=== PATIENT | male | born 1985 | race Caucasian/White ===

== ENCOUNTER 2024-02-13 18:32 | Inpatient (IN) | payer MEDICAID, SELFPAY ==
[2024-02-13] VITALS (31 sets, daily range): BP systolic 133–181; BP diastolic 83–106; PULSE 99–144; TEMP 36.2–36.6; O2SAT 100; BMI 28.1
[2024-02-13 19:10] LABS: Glucometer 429 mg/dL (74-106)
--- NOTE | 2024-02-13 19:16 | ECG_ITS ---
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
--- NOTE | 2024-02-13 19:21 | ED.GENADUL1 ---
HPI HPI - General Adult General Chief complaint: Abdominal Pain Stated complaint: Nausea/Vomiting, Back Pain Time Seen by Provider: 02/13/24 19:09 Mode of arrival: walk-in Limitations: no limitations History of Present Illness HPI narrative: 39-year-old male to the emergency department with chief complaint of abdominal pain, nausea, vomiting. Patient reports is been ongoing for 3 days. He reports that he has not been able to keep anything down. He has not taken his medications in 3 days. He reports that he is a type II diabetic. He does take insulin. He reports that this seems to happen cyclically, multiple times per year. Has been ongoing for 6 years. He reports that he has been hospitalized in [place], at [facility], and several other facilities. The abdominal pain is generalized. It is cramping in nature. There is no diarrhea. There is no blood in the vomit. He denies any fever, sweats, chills. He denies any cough, rhinorrhea, sore throat. Related Data Home Medications ?Medication ?Instructions ?Recorded ?Confirmed apixaban 5 mg (74 tabs) tablets in 5 mg PO Q12H 02/13/24 02/13/24 a dose pack ([employer] DVT-PE Treat 30D Start) dicyclomine 20 mg tablet 20 mg PO BID 02/13/24 02/13/24 insulin aspart U-100 100 unit/mL 1 sliding scale dose subcut TID 02/13/24 02/13/24 (3 mL) subcutaneous pen insulin glargine 100 unit/mL (3 55 unit subcut BID 02/13/24 02/13/24 mL) subcutaneous pen (Lantus Solostar U-100 Insulin) Allergies Allergy/AdvReac Type Severity Reaction Status Date / Time Penicillins Allergy Severe Swelling Verified 02/13/24 18:56 of Lip/Tongue/Throat Opioid HPI Opioid Management Most Recent Opioid Data: No Data to Display Review of Systems ROS Status of ROS 10 or more systems reviewed and unremarkable except as noted in history and below PFSH PFSH Social History Little interest or pleasure in doing things: not at all Feeling down, depressed, or hopeless: not at all Exam Narrative Exam Narrative: VITALS: I have reviewed the triage vital signs. GENERAL: Well developed, well appearing adult in no acute distress. NEURO: Alert and oriented. Moves all extremities. Face is symmetric and expressive. EYES: PERRL. No scleral icterus or conjunctival injection. No discharge. HENT: Normocephalic, atraumatic. Hearing is grossly intact. Nares grossly patent and without discharge. Mucous membranes dry. NECK: No JVD. Patient moves neck without restriction. CARDIO: Rhythm regular. Normal rate. No murmur, rub, or gallop. Pulses equal bilaterally in the upper and lower extremity. No lower extremity edema. PULM: Lungs clear to auscultation in all berry. No wheezes, rales, or rhonchi. No conversational dyspnea. No splinting, stridor, or accessory muscle use. GI/: Abdomen is soft and non-tender. Normoactive bowel sounds. EXTREMITIES: Symmetric muscle bulk. No joint swelling. No clubbing, cyanosis, or deformity. SKIN: Warm and dry. Normal turgor. No rash or lesions appreciated. PSYCH: Mood, affect, and interaction is appropriate to the setting. Constitutional Vital Signs, click to edit/add: Last Vital Signs Temp 97.9 F 02/13/24 18:56 Pulse 131 H 02/13/24 22:25 Resp 19 02/13/24 22:25 BP 142/94 H 02/13/24 22:25 Pulse Ox 100 02/13/24 21:20 O2 Del Method Room Air 02/13/24 18:56 Course Vital Signs Vital signs: Vital Signs Temperature 97.9 F 02/13/24 18:56 Pulse Rate 114 H 02/13/24 18:56 Respiratory Rate 20 02/13/24 18:56 Blood Pressure 164/105 H 02/13/24 18:56 Pulse Oximetry 100 02/13/24 18:56 Oxygen Delivery Method Room Air 02/13/24 18:56 Temperature 97.9 F 02/13/24 18:56 Pulse Rate 131 H 02/13/24 22:25 Respiratory Rate 19 02/13/24 22:25 Blood Pressure 142/94 H 02/13/24 22:25 Pulse Oximetry 100 02/13/24 21:20 Oxygen Delivery Method Room Air 02/13/24 18:56 Medical Decision Making MDM Narrative Medical decision making narrative: 39-year-old male to the emergency department with chief complaint of acute episode of recurrent nausea and vomiting. Concerned he is in DKA. He is tachycardic, otherwise stable vitals. The patient is afebrile. DKA workup is initiated. He does have some generalized abdominal pain with a benign abdominal exam. Will obtain acute abdominal series. I did review his diagnostic history on clinisync. He has an impressive amount of ED visits and hospitalizations over the last 2 years over multiple facilities for this. He has over 10 CT scans of his abdomen pelvis and what I could review. No indication for imaging of his abdomen further tonight. Lab work reviewed and noted. He does look dehydrated. He has a lactic acidosis. He does have an anion gap. Potassium is normal. Abdominal series negative He was started on insulin drip. Fluids at rate. Every 4 hours BMP. No indication for bicarbonate. Case was discussed with the hospitalist Feli via telephone. The patient is accepted to the ICU. Cesar Joya DO, KIMBEREM Medical Records Medical records reviewed: Yes I reviewed the patient's medical records Lab Data Lab results reviewed: Yes I reviewed the patient's lab results Labs: Lab Results 02/13/24 02/13/24 02/13/24 Range/Units 19:03 19:23 21:27 WBC 14.9 H (4.0-11.0) 10^3/uL RBC 6.37 H (4.70-6.10) 10^6/uL Hgb 16.6 (14.0-18.0) g/dL Hct 51.0 (42.0-54.0) % MCV 80.1 (80.0-94.0) fL MCH 26.1 (25.9-34.0) pg MCHC 32.5 (29.9-35.2) g/dL RDW 13.2 (11.0-15.0) % Plt Count 252 (150-450) 10^3/uL MPV 9.9 (9.5-13.5) fL Neut % (Auto) 91.9 H (43.0-75.0) % Lymph % (Auto) 6.2 L (20.5-60.0) % Payne % (Auto) 1.3 L (1.7-12.0) % Eos % (Auto) 0.0 L (0.9-7.0) % Baso % (Auto) 0.2 (0.2-2.0) % Neut # (Auto) 13.7 H (1.4-6.5) 10^3/uL Lymph # (Auto) 0.9 L (1.2-3.8) 10^3/uL Payne # (Auto) 0.2 L (0.3-0.8) 10^3/uL Eos # (Auto) 0.0 (0.0-0.7) 10^3/uL Baso # (Auto) 0.0 (0.0-0.1) 10^3/uL Abs Immat Gran (auto) 0.06 H (0.00-0.03) 10^3/uL Imm/Tot Granulo (auto) 0.4 (0.0-0.5) % VBG pH 7.168 L (7.330-7.430) VBG pCO2 37.3 L (40.0-52.0) mmHg Sodium 133 L (136-145) mmol/L Potassium 4.7 (3.5-5.1) mmol/L Chloride 91 L (98-107) mmol/L Carbon Dioxide 13.0 L (21.0-32.0) mmol/L Anion Gap 33.7 BUN 24.0 H (7.0-18.0) mg/dL Creatinine 1.46 H (0.70-1.30) mg/dL Est GFR ( Amer) >60 (>=60 mL/min/1.73m^2) Est GFR (Non-Af Amer) 53 L (>=60 mL/min/1.73m^2) BUN/Creatinine Ratio 16.4 Glucose 437 H (74-106) mg/dL Lactate 3.2 H* (0.4-2.0) mmol/L Calcium 10.0 (8.5-10.1) mg/dL Magnesium 2.2 (1.8-2.4) mg/dL Total Bilirubin 0.4 (0.2-1.0) mg/dL AST 9 L (15-37) U/L ALT 15 L (16-63) U/L Alkaline Phosphatase 150 H (46-116) U/L Troponin I High Sens <4.0 L (4.0-76.1) pg/mL Total Protein 8.6 H (6.4-8.2) g/dL Albumin 4.3 (3.4-5.0) g/dL Globulin 4.3 g/dL Albumin/Globulin Ratio 1.0 Lipase 37.0 (16.0-77.0) U/L Ethanol Quant <3 mg/dL POC Glucose 429 H 377 H (74-106) mg/dL 02/13/24 02/13/24 Range/Units 22:01 22:27 WBC (4.0-11.0) 10^3/uL RBC (4.70-6.10) 10^6/uL Hgb (14.0-18.0) g/dL Hct (42.0-54.0) % MCV (80.0-94.0) fL MCH (25.9-34.0) pg MCHC (29.9-35.2) g/dL RDW (11.0-15.0) % Plt Count (150-450) 10^3/uL MPV (9.5-13.5) fL Neut % (Auto) (43.0-75.0) % Lymph % (Auto) (20.5-60.0) % Payne % (Auto) (1.7-12.0) % Eos % (Auto) (0.9-7.0) % Baso % (Auto) (0.2-2.0) % Neut # (Auto) (1.4-6.5) 10^3/uL Lymph # (Auto) (1.2-3.8) 10^3/uL Payne # (Auto) (0.3-0.8) 10^3/uL Eos # (Auto) (0.0-0.7) 10^3/uL Baso # (Auto) (0.0-0.1) 10^3/uL Abs Immat Gran (auto) (0.00-0.03) 10^3/uL Imm/Tot Granulo (auto) (0.0-0.5) % VBG pH (7.330-7.430) VBG pCO2 (40.0-52.0) mmHg Sodium (136-145) mmol/L Potassium (3.5-5.1) mmol/L Chloride (98-107) mmol/L Carbon Dioxide (21.0-32.0) mmol/L Anion Gap BUN (7.0-18.0) mg/dL Creatinine (0.70-1.30) mg/dL Est GFR ( Amer) (>=60 mL/min/1.73m^2) Est GFR (Non-Af Amer) (>=60 mL/min/1.73m^2) BUN/Creatinine Ratio Glucose (74-106) mg/dL Lactate 2.6 H* (0.4-2.0) mmol/L Calcium (8.5-10.1) mg/dL Magnesium (1.8-2.4) mg/dL Total Bilirubin (0.2-1.0) mg/dL AST (15-37) U/L ALT (16-63) U/L Alkaline Phosphatase (46-116) U/L Troponin I High Sens (4.0-76.1) pg/mL Total Protein (6.4-8.2) g/dL Albumin (3.4-5.0) g/dL Globulin g/dL Albumin/Globulin Ratio Lipase (16.0-77.0) U/L Ethanol Quant mg/dL POC Glucose 301 H (74-106) mg/dL Imaging Data Abdominal x-ray: Attestation: I have reviewed the pertinent imaging results. Radiologist's impression: ITS Impressions Chest/Abdomen X-ray 02/13/24 19:27 IMPRESSION: Unremarkable plain film examination of the abdomen and chest. Electronically authenticated by: FLAKITO KARIMI Date: 02/13/2024 22:14 ECG Data Attestation: I personally reviewed and interpreted this ECG as follows: (Sinus tachycardia rate of 102. No STEMI. Normal QTc.) Critical Care Time Critical Care Time Critical Care Time: Yes Total Critical Care Time: 55 Attestation: Critical Care Procedure Note Authorized and Performed by: Cesar Joya DO Total critical care time: 55 min Due to a high probability of clinically significant, life threatening deterioration, the patient required my highest level of preparedness to intervene emergently and I personally spent this critical care time directly and personally managing the patient. This critical care time included obtaining a history; examining the patient; pulse oximetry; ordering and review of studies; arranging urgent treatment with development of a management plan; evaluation of patient's response to treatment; frequent reassessment; and, discussions with other providers. This critical care time was performed to assess and manage the high probability of imminent, life-threatening deterioration that could result in multi-organ failure. It was exclusive of separately billable procedures and treating other patients and teaching time. Please see MDM section and the rest of the note for further information on patient assessment and treatment. Discharge Plan Discharge Chief Complaint: Abdominal Pain Time of Disposition Decision: 22:45 Mode of Transportation: Private Vehicle Prescriptions / Home Meds: No Action dicyclomine 20 mg tablet 20 mg PO BID insulin aspart U-100 100 unit/mL (3 mL) insulin pen 1 sliding scale dose SUBCUT TID insulin glargine [Lantus Solostar U-100 Insulin] 100 unit/mL (3 mL) insulin pen 55 unit SUBCUT BID Eliquis DVT-PE Treat 30D Start 5 mg (74 tabs) tablets,dose pack 5 mg PO Q12H Print Language: Korean
--- NOTE | 2024-02-13 19:27 | XR_ITS ---
The [address] [address] Patient Name: ROSHAN HASSAN MRN: [id number] date: 1985 Sex: M Assigned Patient Location: ED.MAIN Current Patient Location: ER Accession/Order Number: [id number] Exam Date: 02/13/2024 20:00 Report Date: 02/13/2024 22:14 At the request of: JAEL MARIE Procedure: XR acute abdomen series EXAMINATION: XR acute abdomen series, 02/13/2024 8:00 PM EDT HISTORY:abdominal pain, vomiting COMPARISON:Chest x-ray dated 01/10/2024. TECHNIQUE:Frontal images of the chest and abdomen are submitted. FINDINGS: There is a nonobstructive bowel gas pattern with air and feces identified throughout the colon to the level the rectum.No obvious free air or pneumatosis are present. No suspicious urologic opacifications are appreciated. The cardiomediastinal silhouette is not enlarged. The pulmonary vascularity is within normal limits. The lungs are clear based on chest radiography. There is no costophrenic angle blunting. There is a moderate to large stool burden. XR/XR acute abdomen series IMPRESSION: Unremarkable plain film examination of the abdomen and chest. Electronically authenticated by: FLAKITO KARIMI Date: 02/13/2024 22:14
[2024-02-13 19:43] LABS: PCO2 VBG 37.3 mmHg (40.0-52.0); pH VBG 7.168 (7.330-7.430)
[2024-02-13] MEDS: PROMETHAZINE HCL 25 MG in 0.9 % SODIUM CHLORIDE 50 ML 204 MG IV (19:43)
[2024-02-13 19:44] LABS: Basophils Percent Auto 0.2 % (0.2-2.0); Hemoglobin 16.6 g/dL (14.0-18.0); Immature Granulocytes Abs Auto 0.06 10^3/uL (0.00-0.03); Immature Granulocytes Pct Auto 0.4 % (0.0-0.5); Lymphocytes Absolute Auto 0.9 10^3/uL (1.2-3.8); Lymphocytes Percent Auto 6.2 % (20.5-60.0); Mean Corpuscular HGB Conc 32.5 g/dL (29.9-35.2); Mean Corpuscular Hemoglobin 26.1 pg (25.9-34.0); Mean Corpuscular Volume 80.1 fL (80.0-94.0); Mean Platelet Volume 9.9 fL (9.5-13.5); Monocytes Absolute Auto 0.2 10^3/uL (0.3-0.8); Monocytes Percent Auto 1.3 % (1.7-12.0); Neutrophils Absolute Auto 13.7 10^3/uL (1.4-6.5); Neutrophils Percent Auto 91.9 % (43.0-75.0); Platelet Count 252 10^3/uL (150-450); Red Blood Count 6.37 10^6/uL (4.70-6.10); Red Cell Distribution Width 13.2 % (11.0-15.0); White Blood Count 14.9 10^3/uL (4.0-11.0)
[2024-02-13] MEDS: LACTATED RINGER'S SOLUTION 1,000 ML 999 ML IV (19:46)
[2024-02-13 20:08] LABS: Alanine Aminotransferase 15 U/L (16-63); Albumin Level 4.3 g/dL (3.4-5.0); Alkaline Phosphatase 150 U/L (46-116); Anion Gap 33.7; Aspartate Amino Transferase 9 U/L (15-37); BUN Creatinine Ratio 16.4; Bilirubin Total 0.4 mg/dL (0.2-1.0); Chloride 91 mmol/L (98-107); Estimated GFR (African America >60 (>=60 mL/min/1.73m^2); Estimated GFR (Non-African Ame 53 (>=60 mL/min/1.73m^2); Globulin 4.3 g/dL; Glucose 437 mg/dL (74-106); Magnesium 2.2 mg/dL (1.8-2.4); Potassium 4.7 mmol/L (3.5-5.1); Sodium 133 mmol/L (136-145); Total Protein 8.6 g/dL (6.4-8.2); Troponin I High Sensitivity <4.0 pg/mL (4.0-76.1)
[2024-02-13 20:17] LABS: Lactate/Lactic Acid 3.2 mmol/L (0.4-2.0)
[2024-02-13 20:23] LABS: Ethanol <3 mg/dL
[2024-02-13] MEDS: 0.9 % SODIUM CHLORIDE 1,000 ML 100 ML IV (20:42)
[2024-02-13] MEDS: INSULIN REGULAR IN 0.9 % NACL 100 UNIT/100 ML PLAST..BAG 8.618 UNIT IV (20:42)
[2024-02-13 21:28] LABS: Glucometer 377 mg/dL (74-106)
[2024-02-13] MEDS: ONDANSETRON PF 4 MG/2 ML VIAL IV (22:08)
[2024-02-13 22:29] LABS: Glucometer 301 mg/dL (74-106)
[2024-02-13 22:30] LABS: Lactate/Lactic Acid 2.6 mmol/L (0.4-2.0)
[2024-02-13 22:51] LABS: PCO2 VBG 20.8 mmHg (40.0-52.0); pH VBG 7.306 (7.330-7.430)
[2024-02-13 23:05] LABS: Glucometer 311 mg/dL (74-106)
[2024-02-13 23:31] LABS: Anion Gap 33.4; BUN Creatinine Ratio 18.1; Calcium 9.6 mg/dL (8.5-10.1); Carbon Dioxide 9.6 mmol/L (21.0-32.0); Chloride 97 mmol/L (98-107); Estimated GFR (African America >60 (>=60 mL/min/1.73m^2); Estimated GFR (Non-African Ame 57 (>=60 mL/min/1.73m^2); Glucose 349 mg/dL (74-106); Sodium 136 mmol/L (136-145)
[2024-02-13 23:45] LABS: Estimated Average Glucose 306 mg/dL; Glycohemoglobin A1C 12.3 % (4.5-6.2)
[2024-02-14] VITALS (16 sets, daily range): BP systolic 116–153; BP diastolic 68–90; PULSE 83–126; TEMP 36.1–36.8; O2SAT 96–98
[2024-02-14 00:03] LABS: Glucometer 230 mg/dL (74-106)
[2024-02-14] MEDS: DEXTROSE 5 %-0.45 % SOD CHLORD 1,000 ML 250 ML IV ×3 (00:10→08:09)
[2024-02-14 02:28] LABS: Anion Gap 26.6; BUN Creatinine Ratio 18.2; Calcium 9.4 mg/dL (8.5-10.1); Carbon Dioxide 15.9 mmol/L (21.0-32.0); Chloride 98 mmol/L (98-107); Estimated GFR (African America >60 (>=60 mL/min/1.73m^2); Estimated GFR (Non-African Ame 60 (>=60 mL/min/1.73m^2); Glucose 302 mg/dL (74-106); Potassium 4.5 mmol/L (3.5-5.1); Sodium 136 mmol/L (136-145)
[2024-02-14 05:33] LABS: Basophils Percent Auto 0.2 % (0.2-2.0); Eosinophils Percent Auto 0.1 % (0.9-7.0); Hematocrit 44.2 % (42.0-54.0); Immature Granulocytes Abs Auto 0.09 10^3/uL (0.00-0.03); Immature Granulocytes Pct Auto 0.6 % (0.0-0.5); Lymphocytes Absolute Auto 1.7 10^3/uL (1.2-3.8); Lymphocytes Percent Auto 10.9 % (20.5-60.0); Mean Corpuscular HGB Conc 33.9 g/dL (29.9-35.2); Mean Corpuscular Hemoglobin 26.5 pg (25.9-34.0); Mean Platelet Volume 9.6 fL (9.5-13.5); Monocytes Absolute Auto 0.7 10^3/uL (0.3-0.8); Monocytes Percent Auto 4.4 % (1.7-12.0); Neutrophils Absolute Auto 13.2 10^3/uL (1.4-6.5); Neutrophils Percent Auto 83.8 % (43.0-75.0); Platelet Count 247 10^3/uL (150-450); Red Blood Count 5.67 10^6/uL (4.70-6.10); Red Cell Distribution Width 13.3 % (11.0-15.0); White Blood Count 15.7 10^3/uL (4.0-11.0)
[2024-02-14 05:42] LABS: pH VBG 7.383 (7.330-7.430)
[2024-02-14 05:43] LABS: PCO2 VBG 34.8 mmHg (40.0-52.0)
[2024-02-14 05:51] LABS: Phosphorus 2.6 mg/dL (2.6-4.7)
--- NOTE | 2024-02-14 05:57 | P.HP_ITS ---
HPI H&P: HPI History of Present Illness Chief complaint: Nausea/Vomiting, Back Pain Narrative: With a history of insulin-dependent diabetes, presented to the emergency room with increasing abdominal pain, nausea, vomiting. In the emergency room patient found to have significant acidosis consistent with diabetic ketoacidosis. Patient was transferred up to the intensive care unit and placed on insulin drip. When I saw patient in the intensive care unit, he was resting comfortably in bed, does have some abdominal pain. Opioid HPI Opioid Management Most Recent Pain and Opioid Data: Last Pain Scale 3 02/14/24 08:00 02/14/24 Last Pain Assessment 02/14/24 09:00 Last ORT Total Score 1 02/13/24 23:26 02/13/24 Last ORT Risk Category Low Risk 02/13/24 23:26 02/13/24 Review of Systems ROS Status of ROS 10 or more systems reviewed and unremark able except as noted in history and below [facility] Medical History (Updated 02/14/24 @ 05:54 by Magdalena Hernandez) DVT of lower extremity (deep venous thrombosis) ?I82.409 - Acute embolism and thrombosis of unspecified deep veins of unspecified lower extremity (ICD-10) Diabetes ?E11.9 - Type 2 diabetes mellitus without complications (ICD-10) Social History (Updated 02/13/24 @ 23:15 by Pearl Saenz) Smoking status: Current some day smoker Nicotine containing products detail: half pack daily Non-prescribed substance use: denies use Highest level of school completed/degree received: don't know Little interest or pleasure in doing things: not at all Feeling down, depressed, or hopeless: not at all Meds Home Medications and Allergies Home Medications ?Medication ?Instructions ?Recorded ?Confirmed ?Type apixaban 5 mg (74 tabs) tablets in 5 mg PO Q12H 02/13/24 02/13/24 History a dose pack (Eliquis DVT-PE Treat 30D Start) dicyclomine 20 mg tablet 20 mg PO BID 02/13/24 02/13/24 History insulin aspart U-100 100 unit/mL 1 sliding scale dose subcut TID 02/13/24 02/13/24 History (3 mL) subcutaneous pen insulin glargine 100 unit/mL (3 55 unit subcut BID 02/13/24 02/13/24 History mL) subcutaneous pen (Lantus Solostar U-100 Insulin) blood-glucose sensor (Dexcom G7 02/14/24 02/14/24 History Sensor device) Allergies Allergy/AdvReac Type Severity Reaction Status Date / Time Penicillins Allergy Severe Swelling Verified 02/13/24 18:56 of Lip/Tongue/Throat Exam Constitutional Vital Signs, click to edit/add: Last Vital Signs Temp 97 F L 02/14/24 04:14 Pulse 124 H 02/14/24 04:14 Resp 16 02/14/24 04:14 BP 153/90 H 02/14/24 04:14 Pulse Ox 97 02/14/24 04:14 O2 Del Method Room Air 02/14/24 04:14 Documenting provider has reviewed patient's vital signs: yes Common normals: apparent distress (Mild abdominal discomfort) Chest Common normals: inspection of chest normal Respiratory Common normals: normal respiratory effort Cardio Common normals: regular rate and regular rhythm GI Common normals: Normal to inspection, nondistended, normoactive bowel sounds present and soft to palpation; tender Palpation: tender (Diffusely tender, no rebound tenderness) Extremity Common normals: normal to inspection Results Labs Labs: Short CBC 02/13/24 02/14/24 Range/Units 19:23 05:12 WBC 14.9 H 15.7 H (4.0-11.0) 10^3/uL Hgb 16.6 15.0 (14.0-18.0) g/dL Hct 51.0 44.2 (42.0-54.0) % Plt Count 252 247 (150-450) 10^3/uL BMP 02/13/24 02/13/24 02/14/24 19:23 22:44 01:55 Sodium 133 L 136 136 Potassium 4.7 4.0 4.5 Chloride 91 L 97 L 98 Carbon Dioxide 13.0 L 9.6 L 15.9 L BUN 24.0 H 25.0 H 24.0 H Creatinine 1.46 H 1.38 H 1.32 H Glucose 437 H 349 H 302 H Calcium 10.0 9.6 9.4 Liver Function 02/13/24 Range/Units 19:23 Total Bilirubin 0.4 (0.2-1.0) mg/dL AST 9 L (15-37) U/L ALT 15 L (16-63) U/L Alkaline Phosphatase 150 H (46-116) U/L Albumin 4.3 (3.4-5.0) g/dL ABG ABG results: 02/13/24 02/13/24 02/14/24 19:23 22:44 05:12 VBG pH 7.168 L 7.306 L 7.383 VBG pCO2 37.3 L 20.8 L 34.8 L Assessment and Plan Assessment and Plan (1) Acute dehydration: (2) DKA (diabetic ketoacidosis): (3) Diabetes: Plan Admission findings: Sinus tachycardia, respiratory distress, uncontrolled high blood pressure, hyperglycemia, hyponatremia, leukocytosis, metabolic acidosis, acute kidney injury secondary to acute diabetic ketoacidosis. DKA: Maintain insulin drip and IV fluids. Advance diet this morning. Restart home insulin as his pH is improving. Reevaluate later today. Abdominal pain-history of cyclic vomiting syndrome. Patient denies that is what it is. Will increase his Bentyl and reevaluate later today Thrombocytopenia-monitor daily Acute kidney injury with creatinine 120% above baseline-IV fluid resuscitation Leukocytosis-no acute infectious symptoms likely demargination Admission status: With the severity of his acidosis and need for IV insulin patient was placed in the inpatient status. Medically necessary treatment will span 2 midnights. Maintain inpatient status
[2024-02-14] MEDS: DICYCLOMINE HCL 20 MG/2 ML VIAL IM (06:09)
[2024-02-14] MEDS: PANTOPRAZOLE SODIUM 40 MG VIAL IV (06:32)
[2024-02-14] MEDS: HYOSCYAMINE SULFATE 0.125 MG TAB.SUBL SL (06:32)
[2024-02-14 07:09] LABS: Anion Gap 22.3; BUN Creatinine Ratio 17.6; Calcium 9.1 mg/dL (8.5-10.1); Chloride 98 mmol/L (98-107); Estimated GFR (African America >60 (>=60 mL/min/1.73m^2); Estimated GFR (Non-African Ame >60 (>=60 mL/min/1.73m^2); Glucose 303 mg/dL (74-106); Potassium 4.3 mmol/L (3.5-5.1); Sodium 134 mmol/L (136-145)
[2024-02-14] MEDS: APIXABAN 5 MG TABLET PO ×2 (08:10→20:07)
[2024-02-14] MEDS: DICYCLOMINE HCL 10 MG CAPSULE 20 MG PO ×2 (08:10→20:07)
--- NOTE | 2024-02-14 09:33 | CM.NOTE ---
Rounds made with Dr. Celis, discussed with pt diagnosis and plan of care. No discharge today.
[2024-02-14] MEDS: KETOROLAC TROMETHAMINE 30 MG/ML VIAL IVP ×2 (09:58→20:06)
[2024-02-14 10:22] LABS: Anion Gap 17.1; BUN Creatinine Ratio 14.9; Calcium 8.8 mg/dL (8.5-10.1); Carbon Dioxide 20.7 mmol/L (21.0-32.0); Chloride 101 mmol/L (98-107); Estimated GFR (African America >60 (>=60 mL/min/1.73m^2); Estimated GFR (Non-African Ame >60 (>=60 mL/min/1.73m^2); Glucose 216 mg/dL (74-106); Potassium 3.8 mmol/L (3.5-5.1); Sodium 135 mmol/L (136-145)
[2024-02-14] MEDS: INSULIN REGULAR IN 0.9 % NACL 100 UNIT/100 ML PLAST..BAG 7.3 UNIT IV (10:44)
[2024-02-14] MEDS: ONDANSETRON PF 4 MG/2 ML VIAL IV (12:33)
[2024-02-14] MEDS: HALOPERIDOL LACTATE 5 MG/ML VIAL 2.5 MG IV (12:58)
[2024-02-14] MEDS: METOCLOPRAMIDE HCL 10 MG/2 ML VIAL IVP ×2 (12:58→20:07)
[2024-02-14 14:07] LABS: Bilirubin Urine NEGATIVE (NEGATIVE); Blood Urine NEGATIVE (NEGATIVE); Clarity Urine CLEAR (CLEAR); Color Urine LT. YELLOW (YELLOW); Glucose Urine UA >=1000 mg/dL (NEGATIVE); Ketones Urine 40 mg/dL (NEGATIVE); Leukocyte Esterase Urine NEGATIVE (NEGATIVE); Nitrite Urine NEGATIVE (NEGATIVE); Protein Urine TRACE mg/dL (NEG/TRACE); Urobilinogen Urine 0.2 EU/dL (0.2-1.0)
[2024-02-14 14:16] LABS: Urine Microscopic Indicated NO
[2024-02-14 14:21] LABS: Amphetamine Screen Urine NEGATIVE (NEGATIVE); Barbiturates Screen Urine NEGATIVE (NEGATIVE); Benzodiazepines Screen Urine NEGATIVE (NEGATIVE); Buprenorphine Screen Urine NEGATIVE (NEGATIVE); Cannabinoid Screen Urine POSITIVE (NEGATIVE); Cocaine Screen Urine NEGATIVE (NEGATIVE); Methadone Screen Urine NEGATIVE (NEGATIVE); Methamphetamines Screen Urine NEGATIVE (NEGATIVE); Opiate Screen Urine NEGATIVE (NEGATIVE); Oxycodone Screen Urine NEGATIVE (NEGATIVE); Phencyclidine Screen Urine NEGATIVE (NEGATIVE); Tricyclic Antidepressant Urine NEGATIVE (NEGATIVE)
[2024-02-14 14:30] LABS: BUN Creatinine Ratio 16.9; Calcium 9.3 mg/dL (8.5-10.1); Carbon Dioxide 21.9 mmol/L (21.0-32.0); Chloride 99 mmol/L (98-107); Estimated GFR (African America >60 (>=60 mL/min/1.73m^2); Estimated GFR (Non-African Ame >60 (>=60 mL/min/1.73m^2); Glucose 308 mg/dL (74-106); Potassium 3.9 mmol/L (3.5-5.1); Sodium 135 mmol/L (136-145)
[2024-02-14] MEDS: 0.9 % SODIUM CHLORIDE 1,000 ML 125 ML IV ×2 (15:35→23:40)
[2024-02-14 16:07] LABS: Magnesium 2.2 mg/dL (1.8-2.4); Phosphorus 2.8 mg/dL (2.6-4.7)
[2024-02-14 18:05] LABS: Basophils Percent Auto 0.1 % (0.2-2.0); Eosinophils Percent Auto 0.1 % (0.9-7.0); Hemoglobin 14.1 g/dL (14.0-18.0); Immature Granulocytes Pct Auto 0.6 % (0.0-0.5); Lymphocytes Absolute Auto 1.8 10^3/uL (1.2-3.8); Lymphocytes Percent Auto 9.8 % (20.5-60.0); Mean Corpuscular HGB Conc 33.6 g/dL (29.9-35.2); Mean Corpuscular Hemoglobin 26.6 pg (25.9-34.0); Mean Corpuscular Volume 79.1 fL (80.0-94.0); Mean Platelet Volume 9.1 fL (9.5-13.5); Monocytes Absolute Auto 1.2 10^3/uL (0.3-0.8); Monocytes Percent Auto 6.9 % (1.7-12.0); Neutrophils Absolute Auto 14.9 10^3/uL (1.4-6.5); Neutrophils Percent Auto 82.5 % (43.0-75.0); Platelet Count 198 10^3/uL (150-450); Red Blood Count 5.31 10^6/uL (4.70-6.10); Red Cell Distribution Width 13.5 % (11.0-15.0)
[2024-02-14 18:21] LABS: Anion Gap 15.5; BUN Creatinine Ratio 18.6; Calcium 9.1 mg/dL (8.5-10.1); Carbon Dioxide 20.7 mmol/L (21.0-32.0); Chloride 102 mmol/L (98-107); Estimated GFR (African America >60 (>=60 mL/min/1.73m^2); Estimated GFR (Non-African Ame >60 (>=60 mL/min/1.73m^2); Glucose 196 mg/dL (74-106); Magnesium 2.3 mg/dL (1.8-2.4); Phosphorus 3.1 mg/dL (2.6-4.7); Potassium 4.2 mmol/L (3.5-5.1); Sodium 134 mmol/L (136-145)
--- NOTE | 2024-02-14 19:25 | DIETREC ---
Due to N/V, recommend Clear Liquid diet; advance to Full Liquid as tolerated. Provided basic diet guidelines. Will offer diabetic diet education as pt will accept and continue to follow PRN.
[2024-02-14 22:50] LABS: Anion Gap 12.3; BUN Creatinine Ratio 19.4; Calcium 8.8 mg/dL (8.5-10.1); Carbon Dioxide 24.2 mmol/L (21.0-32.0); Chloride 107 mmol/L (98-107); Estimated GFR (African America >60 (>=60 mL/min/1.73m^2); Estimated GFR (Non-African Ame >60 (>=60 mL/min/1.73m^2); Glucose 133 mg/dL (74-106); Magnesium 2.1 mg/dL (1.8-2.4); Phosphorus 2.9 mg/dL (2.6-4.7); Potassium 3.5 mmol/L (3.5-5.1); Sodium 140 mmol/L (136-145)
[2024-02-15] VITALS (16 sets, daily range): BP systolic 105–157; BP diastolic 61–93; PULSE 68–95; TEMP 36.1–37.1; O2SAT 96–99
[2024-02-15] MEDS: METOCLOPRAMIDE HCL 10 MG/2 ML VIAL IVP ×4 (01:54→22:20)
[2024-02-15] MEDS: KETOROLAC TROMETHAMINE 30 MG/ML VIAL IVP ×4 (03:05→22:22)
[2024-02-15] MEDS: HALOPERIDOL LACTATE 5 MG/ML VIAL 1 MG IV ×2 (03:05→08:38)
[2024-02-15 05:38] LABS: Basophils Percent Auto 0.3 % (0.2-2.0); Eosinophils Absolute Auto 0.1 10^3/uL (0.0-0.7); Eosinophils Percent Auto 0.4 % (0.9-7.0); Hematocrit 39.1 % (42.0-54.0); Immature Granulocytes Abs Auto 0.04 10^3/uL (0.00-0.03); Immature Granulocytes Pct Auto 0.3 % (0.0-0.5); Lymphocytes Absolute Auto 2.2 10^3/uL (1.2-3.8); Lymphocytes Percent Auto 19.2 % (20.5-60.0); Mean Corpuscular HGB Conc 33.2 g/dL (29.9-35.2); Mean Corpuscular Hemoglobin 26.4 pg (25.9-34.0); Mean Corpuscular Volume 79.3 fL (80.0-94.0); Mean Platelet Volume 9.4 fL (9.5-13.5); Monocytes Absolute Auto 0.8 10^3/uL (0.3-0.8); Monocytes Percent Auto 7.1 % (1.7-12.0); Neutrophils Absolute Auto 8.3 10^3/uL (1.4-6.5); Neutrophils Percent Auto 72.7 % (43.0-75.0); Platelet Count 202 10^3/uL (150-450); Red Blood Count 4.93 10^6/uL (4.70-6.10); Red Cell Distribution Width 13.6 % (11.0-15.0); White Blood Count 11.4 10^3/uL (4.0-11.0)
[2024-02-15 05:38] LABS: Anion Gap 12.6; BUN Creatinine Ratio 18.5; Calcium 8.7 mg/dL (8.5-10.1); Carbon Dioxide 23.3 mmol/L (21.0-32.0); Chloride 108 mmol/L (98-107); Estimated GFR (African America >60 (>=60 mL/min/1.73m^2); Estimated GFR (Non-African Ame >60 (>=60 mL/min/1.73m^2); Glucose 154 mg/dL (74-106); Magnesium 2.1 mg/dL (1.8-2.4); Phosphorus 2.6 mg/dL (2.6-4.7); Potassium 3.9 mmol/L (3.5-5.1); Sodium 140 mmol/L (136-145)
[2024-02-15 05:54] LABS: Alanine Aminotransferase 12 U/L (16-63); Albumin Level 2.7 g/dL (3.4-5.0); Alkaline Phosphatase 91 U/L (46-116); Anion Gap 12.5; Aspartate Amino Transferase 14 U/L (15-37); BUN Creatinine Ratio 20.2; Bilirubin Total 0.4 mg/dL (0.2-1.0); Calcium 8.5 mg/dL (8.5-10.1); Carbon Dioxide 24.2 mmol/L (21.0-32.0); Chloride 108 mmol/L (98-107); Estimated GFR (African America >60 (>=60 mL/min/1.73m^2); Estimated GFR (Non-African Ame >60 (>=60 mL/min/1.73m^2); Globulin 2.8 g/dL; Glucose 126 mg/dL (74-106); Potassium 3.7 mmol/L (3.5-5.1); Sodium 141 mmol/L (136-145); Total Protein 5.5 g/dL (6.4-8.2)
[2024-02-15] MEDS: PANTOPRAZOLE SODIUM 40 MG VIAL IV (06:04)
[2024-02-15] MEDS: DICYCLOMINE HCL 10 MG CAPSULE 20 MG PO ×3 (06:04→22:32)
[2024-02-15] MEDS: 0.9 % SODIUM CHLORIDE 1,000 ML 125 ML IV (07:03)
[2024-02-15 07:23] LABS: Anion Gap 14.9; BUN Creatinine Ratio 20.2; Calcium 8.5 mg/dL (8.5-10.1); Carbon Dioxide 22.6 mmol/L (21.0-32.0); Chloride 108 mmol/L (98-107); Estimated GFR (African America >60 (>=60 mL/min/1.73m^2); Estimated GFR (Non-African Ame >60 (>=60 mL/min/1.73m^2); Glucose 101 mg/dL (74-106); Magnesium 2.1 mg/dL (1.8-2.4); Phosphorus 2.6 mg/dL (2.6-4.7); Potassium 3.5 mmol/L (3.5-5.1); Sodium 142 mmol/L (136-145)
[2024-02-15] MEDS: APIXABAN 5 MG TABLET PO ×2 (08:38→22:24)
[2024-02-15] MEDS: OMEPRAZOLE 40 MG CAPSULE.DR PO (09:11)
[2024-02-15] MEDS: INSULIN DETEMIR 300 UNIT/3 ML INSULN.PEN 45 UNIT SUBQ (09:11)
[2024-02-15] MEDS: SODIUM CHLORIDE 0.45 % 1,000 ML 125 ML IV ×2 (09:12→17:01)
--- NOTE | 2024-02-15 10:37 | P.IMPN_ITS ---
Progress Note: A&P Assessment and Plan (1) Acute dehydration: (2) DKA (diabetic ketoacidosis): Qualifiers: Diabetes mellitus type: type 1 Diabetes mellitus complication detail: without coma Qualified Code(s): E10.10 - Type 1 diabetes mellitus with ketoacidosis without coma (3) Cyclic vomiting syndrome: (4) Diabetes: Qualifiers: Diabetes mellitus type: type 1 Diabetes mellitus complication status: without complication Qualified Code(s): E10.9 - Type 1 diabetes mellitus without complications (5) H/O deep venous thrombosis: (6) Leukocytosis: Qualifiers: Leukocytosis type: leukemoid reaction Qualified Code(s): D72.823 - Leukemoid reaction Plan Gap closed. Insulin drip discontinued. Transitioned to SQ insulin. Takes 55 units of Levemir q12 but due to persistent nausea/low PO intake, will start with 45 units along with SSI Q6H. Hyperchloremia/hypernatremia noted likely due to aggressive isotonic fluid resuscitation. Changed IVF to 0.45 NS as patient is still clinically dry and has poor PO intake. Leukocytosis is improving. No evidence of an infection. Patient counseled on importance of compliance. Admits to not using Insulin as prescribed. Advance diet as tolerated. Requires continued inpatient treatment/monitoring as continues to have nausea/poor PO intake and has not been tolerating PO diet. C/w IV Reglan TID, along with zofran as needed. Reviewed labs, discussed results with the patient. Care plan d/w patient's RN. [facility] Internal Medicine - PN: Subj Subjective Interval history: Seen and examined. Insulin drip discontinued this morning. Patient could not tolerate Liquid diet and vomited. He is feeling better after throwing up. Denies abdominal pain. Exam Constitutional Vital Signs, click to edit/add: Last Vital Signs Temp 97.4 F L 02/15/24 04:00 Pulse 95 H 02/15/24 10:00 Resp 18 02/15/24 08:00 BP 126/83 02/15/24 08:00 Pulse Ox 96 02/15/24 08:00 O2 Del Method Room Air 02/15/24 08:00 Documenting provider has reviewed patient's vital signs: yes Common normals: no apparent distress and oriented x3 General appearance: cooperative Respiratory Common normals: normal respiratory effort and clear to auscultation bilaterally Effort & inspection: able to speak in complete sentences Auscultation: clear to auscultation bilaterally Cardio Common normals: regular rate, S1 normal heart sound and S2 normal heart sound Rate: regular rate Heart sounds: S1 normal and S2 normal GI Common normals: Normal to inspection, nondistended, normoactive bowel sounds present, soft to palpation, non-tender and no hepatosplenomegaly Palpation: soft and no hepatosplenomegaly Extremity Common normals: no clubbing, cyanosis or edema Neuro Common normals: oriented x3, moves all extremities and no focal motor deficits Psych Common normals: mental status grossly normal, denies hallucinations, denies homicidal ideation and denies suicidal ideation Internal Medicine - PN: Obj Da Labs Labs: Laboratory Results - last 24 hr 02/14/24 02/14/24 02/14/24 13:50 14:16 18:00 WBC 18.0 H RBC 5.31 Hgb 14.1 Hct 42.0 MCV 79.1 L MCH 26.6 MCHC 33.6 RDW 13.5 Plt Count 198 MPV 9.1 L Neut % (Auto) 82.5 H Lymph % (Auto) 9.8 L [place] % (Auto) 6.9 Eos % (Auto) 0.1 L Baso % (Auto) 0.1 L Neut # (Auto) 14.9 H Lymph # (Auto) 1.8 [place] # (Auto) 1.2 H Eos # (Auto) 0.0 Baso # (Auto) 0.0 Abs Immat Gran (auto) 0.10 H Imm/Tot Granulo (auto) 0.6 H Sodium 135 L 134 L Potassium 3.9 4.2 Chloride 99 102 Carbon Dioxide 21.9 20.7 L Anion Gap 18.0 15.5 BUN 22.0 H 21.0 H Creatinine 1.30 1.13 Est GFR ( Amer) >60 >60 Est GFR (Non-Af Amer) >60 >60 BUN/Creatinine Ratio 16.9 18.6 Glucose 308 H 196 H Calcium 9.3 9.1 Phosphorus 2.8 3.1 Magnesium 2.2 2.3 Total Bilirubin AST ALT Alkaline Phosphatase Total Protein Albumin Globulin Albumin/Globulin Ratio Urine Color Lt. yellow Urine Clarity Clear Urine pH 6.0 Ur Specific [place] 1.020 Urine Protein Trace Urine Glucose (UA) >=1000 A Urine Ketones 40 A Urine Occult Blood Negative Urine Nitrite Negative Urine Bilirubin Negative Urine Urobilinogen 0.2 Ur Leukocyte Esterase Negative Urine Opiates Screen Negative Ur Buprenorphine Scrn Negative Ur Oxycodone Screen Negative Urine Methadone Screen Negative Ur Barbiturates Screen Negative U Tricyclic Antidepress Negative Ur Phencyclidine Scrn Negative Ur Amphetamines Screen Negative U Methamphetamines Scrn Negative U Benzodiazepines Scrn Negative Urine Cocaine Screen Negative U Cannabinoids Screen Positive A 02/14/24 02/15/24 02/15/24 22:10 03:10 05:24 WBC 11.4 H RBC 4.93 Hgb 13.0 L Hct 39.1 L MCV 79.3 L MCH 26.4 MCHC 33.2 RDW 13.6 Plt Count 202 MPV 9.4 L Neut % (Auto) 72.7 Lymph % (Auto) 19.2 L [place] % (Auto) 7.1 Eos % (Auto) 0.4 L Baso % (Auto) 0.3 Neut # (Auto) 8.3 H Lymph # (Auto) 2.2 [place] # (Auto) 0.8 Eos # (Auto) 0.1 Baso # (Auto) 0.0 Abs Immat Gran (auto) 0.04 H Imm/Tot Granulo (auto) 0.3 Sodium 140 140 141 Potassium 3.5 3.9 3.7 Chloride 107 108 H 108 H Carbon Dioxide 24.2 23.3 24.2 Anion Gap 12.3 12.6 12.5 BUN 21.0 H 20.0 H 20.0 H Creatinine 1.08 1.08 0.99 Est GFR ( Amer) >60 >60 >60 Est GFR (Non-Af Amer) >60 >60 >60 BUN/Creatinine Ratio 19.4 18.5 20.2 Glucose 133 H 154 H 126 H Calcium 8.8 8.7 8.5 Phosphorus 2.9 2.6 Magnesium 2.1 2.1 Total Bilirubin 0.4 AST 14 L ALT 12 L Alkaline Phosphatase 91 Total Protein 5.5 L Albumin 2.7 L Globulin 2.8 Albumin/Globulin Ratio 1.0 Urine Color Urine Clarity Urine pH Ur Specific [place] Urine Protein Urine Glucose (UA) Urine Ketones Urine Occult Blood Urine Nitrite Urine Bilirubin Urine Urobilinogen Ur Leukocyte Esterase Urine Opiates Screen Ur Buprenorphine Scrn Ur Oxycodone Screen Urine Methadone Screen Ur Barbiturates Screen U Tricyclic Antidepress Ur Phencyclidine Scrn Ur Amphetamines Screen U Methamphetamines Scrn U Benzodiazepines Scrn Urine Cocaine Screen U Cannabinoids Screen 02/15/24 07:05 WBC RBC Hgb Hct MCV MCH MCHC RDW Plt Count MPV Neut % (Auto) Lymph % (Auto) [place] % (Auto) Eos % (Auto) Baso % (Auto) Neut # (Auto) Lymph # (Auto) [place] # (Auto) Eos # (Auto) Baso # (Auto) Abs Immat Gran (auto) Imm/Tot Granulo (auto) Sodium 142 Potassium 3.5 Chloride 108 H Carbon Dioxide 22.6 Anion Gap 14.9 BUN 20.0 H Creatinine 0.99 Est GFR ( Amer) >60 Est GFR (Non-Af Amer) >60 BUN/Creatinine Ratio 20.2 Glucose 101 Calcium 8.5 Phosphorus 2.6 Magnesium 2.1 Total Bilirubin AST ALT Alkaline Phosphatase Total Protein Albumin Globulin Albumin/Globulin Ratio Urine Color Urine Clarity Urine pH Ur Specific [place] Urine Protein Urine Glucose (UA) Urine Ketones Urine Occult Blood Urine Nitrite Urine Bilirubin Urine Urobilinogen Ur Leukocyte Esterase Urine Opiates Screen Ur Buprenorphine Scrn Ur Oxycodone Screen Urine Methadone Screen Ur Barbiturates Screen U Tricyclic Antidepress Ur Phencyclidine Scrn Ur Amphetamines Screen U Methamphetamines Scrn U Benzodiazepines Scrn Urine Cocaine Screen U Cannabinoids Screen
[2024-02-15] MEDS: ONDANSETRON PF 4 MG/2 ML VIAL IV (11:09)
[2024-02-15] MEDS: INSULIN ASPART 300 UNIT/3 ML PEN SUBQ (11:09)
--- NOTE | 2024-02-15 14:00 | CT_ITS ---
The [address] [address] Patient Name: ROSHAN HASSAN MRN: [id number] date: 1985 Sex: M Assigned Patient Location: [place] Current Patient Location: Accession/Order Number: [id number] Exam Date: 02/15/2024 14:35 Report Date: 02/15/2024 16:06 At the request of: SHAIKH RICCI Procedure: CT abdomen pelvis wo con CT ABDOMEN AND PELVIS WITHOUT CONTRAST: 02/15/2024 2:35 PM EDT Clinical Data: Persistent nausea/vomiting Comparison: 124 Unenhanced helically acquired data per protocol. The lack of IV contrast material hampers evaluation of the viscera, for adenopathy, and of the vasculature. The lack of oral contrast medium to some extent hampers evaluation of the bowel. All CT scans at this facility use dose modulation, iterative reconstruction, and/or weight based dosing when appropriate to reduce radiation dose to as low as reasonably achievable. FINDINGS: LOWER THORAX: No acute finding LIVER: No acute findings. SPLEEN: No acute findings. GB/BILIARY: No acute findings at CT. PANCREAS: No acute findings. ADRENALS: Fairly mild nonspecific thickening both adrenals is again present KIDNEYS/URETERS: Kidneys are symmetric in size and density on this unenhanced study. No perinephric fluid collection or stranding. No hydronephrosis or hydroureter. No calculi VESSELS: No AAA ABDOMINAL NODES: No obvious adenopathy. PELVIC NODES: No obvious adenopathy. BLADDER: Nearly empty. No calculi REPRODUCTIVE: No acute findings PERITONEUM: No free air. No free fluid. EXTRAPERITONEUM: No acute findings. BOWEL: No GI obstruction. Mild to modest amount stool within aspects of the colon. A modest amount of fluid and some air in the stomach. Small amount of air, fluid, and debris in nondistended small now. On this study performed without oral contrast medium, no focally thickened loop of bowel is apparent BODY WALL: No acute finding BONES: No acute findings. Again, some arthritic changes at the SI joints OTHER: None CT/CT abdomen pelvis wo con IMPRESSION: 1. No evidence of acute process on this unenhanced exam as described.. Electronically authenticated by: ANNETTE MORATAYA Date: 02/15/2024 16:06
[2024-02-15] MEDS: 0.9 % SODIUM CHLORIDE 1,000 ML 1000 ML IV (15:30)
[2024-02-15] MEDS: PROMETHAZINE HCL 25 MG in 0.9 % SODIUM CHLORIDE 50 ML 204 MG IV ×2 (15:38→22:18)
[2024-02-15 15:43] LABS: Basophils Percent Auto 0.3 % (0.2-2.0); Eosinophils Percent Auto 0.1 % (0.9-7.0); Hematocrit 43.1 % (42.0-54.0); Hemoglobin 14.1 g/dL (14.0-18.0); Immature Granulocytes Abs Auto 0.05 10^3/uL (0.00-0.03); Immature Granulocytes Pct Auto 0.4 % (0.0-0.5); Lymphocytes Percent Auto 8.8 % (20.5-60.0); Mean Corpuscular HGB Conc 32.7 g/dL (29.9-35.2); Mean Corpuscular Hemoglobin 26.2 pg (25.9-34.0); Monocytes Absolute Auto 0.5 10^3/uL (0.3-0.8); Monocytes Percent Auto 3.8 % (1.7-12.0); Neutrophils Absolute Auto 10.3 10^3/uL (1.4-6.5); Neutrophils Percent Auto 86.6 % (43.0-75.0); Platelet Count 203 10^3/uL (150-450); Red Blood Count 5.39 10^6/uL (4.70-6.10); Red Cell Distribution Width 13.4 % (11.0-15.0); White Blood Count 11.9 10^3/uL (4.0-11.0)
[2024-02-15 15:50] LABS: Anion Gap 16.1; BUN Creatinine Ratio 19.3; Calcium 8.5 mg/dL (8.5-10.1); Carbon Dioxide 22.8 mmol/L (21.0-32.0); Chloride 103 mmol/L (98-107); Estimated GFR (African America >60 (>=60 mL/min/1.73m^2); Estimated GFR (Non-African Ame >60 (>=60 mL/min/1.73m^2); Glucose 162 mg/dL (74-106); Potassium 3.9 mmol/L (3.5-5.1); Sodium 138 mmol/L (136-145)
[2024-02-15 22:47] LABS: Glucometer 66 mg/dL (74-106)
[2024-02-15 23:06] LABS: Glucometer 101 mg/dL (74-106)
[2024-02-16] VITALS: BP 149/84; PULSE 89; TEMP 36.9; O2SAT 98
[2024-02-16] MEDS: SODIUM CHLORIDE 0.45 % 1,000 ML 125 ML IV ×2 (00:06→07:49)
[2024-02-16 05:00] VITALS: BP 153/94; PULSE 93; TEMP 36.9; O2SAT 97
[2024-02-16 05:01] VITALS: O2SAT 96
[2024-02-16] MEDS: DICYCLOMINE HCL 10 MG CAPSULE 20 MG PO (05:17)
[2024-02-16] MEDS: KETOROLAC TROMETHAMINE 30 MG/ML VIAL IVP (05:18)
[2024-02-16] MEDS: METOCLOPRAMIDE HCL 10 MG/2 ML VIAL IVP (05:18)
[2024-02-16] MEDS: INSULIN ASPART 300 UNIT/3 ML PEN SUBQ (05:30)
[2024-02-16 05:50] LABS: Basophils Percent Auto 0.4 % (0.2-2.0); Eosinophils Percent Auto 0.4 % (0.9-7.0); Hematocrit 41.4 % (42.0-54.0); Hemoglobin 13.9 g/dL (14.0-18.0); Immature Granulocytes Abs Auto 0.03 10^3/uL (0.00-0.03); Immature Granulocytes Pct Auto 0.3 % (0.0-0.5); Lymphocytes Absolute Auto 1.8 10^3/uL (1.2-3.8); Lymphocytes Percent Auto 16.4 % (20.5-60.0); Mean Corpuscular HGB Conc 33.6 g/dL (29.9-35.2); Mean Corpuscular Hemoglobin 26.1 pg (25.9-34.0); Mean Corpuscular Volume 77.8 fL (80.0-94.0); Mean Platelet Volume 9.2 fL (9.5-13.5); Monocytes Absolute Auto 0.8 10^3/uL (0.3-0.8); Monocytes Percent Auto 7.6 % (1.7-12.0); Neutrophils Absolute Auto 8.1 10^3/uL (1.4-6.5); Neutrophils Percent Auto 74.9 % (43.0-75.0); Platelet Count 212 10^3/uL (150-450); Red Blood Count 5.32 10^6/uL (4.70-6.10); Red Cell Distribution Width 12.9 % (11.0-15.0); White Blood Count 10.8 10^3/uL (4.0-11.0)
[2024-02-16 06:06] LABS: Alanine Aminotransferase 12 U/L (16-63); Albumin Globulin Ratio 0.9; Albumin Level 2.8 g/dL (3.4-5.0); Alkaline Phosphatase 95 U/L (46-116); Aspartate Amino Transferase 12 U/L (15-37); BUN Creatinine Ratio 10.6; Bilirubin Total 0.5 mg/dL (0.2-1.0); Carbon Dioxide 21.4 mmol/L (21.0-32.0); Chloride 100 mmol/L (98-107); Estimated GFR (African America >60 (>=60 mL/min/1.73m^2); Estimated GFR (Non-African Ame >60 (>=60 mL/min/1.73m^2); Globulin 3.2 g/dL; Glucose 138 mg/dL (74-106); Potassium 3.4 mmol/L (3.5-5.1); Sodium 137 mmol/L (136-145)
[2024-02-16] MEDS: ONDANSETRON PF 4 MG/2 ML VIAL IV (07:48)
[2024-02-16 08:00] VITALS: PULSE 88
[2024-02-16] MEDS: APIXABAN 5 MG TABLET PO (08:04)
[2024-02-16] MEDS: OMEPRAZOLE 40 MG CAPSULE.DR PO (08:05)
[2024-02-16] MEDS: INSULIN DETEMIR 300 UNIT/3 ML INSULN.PEN 45 UNIT SUBQ (08:05)
[2024-02-16 08:15] VITALS: BP 151/78; PULSE 88; TEMP 36.6; O2SAT 97
--- NOTE | 2024-02-16 09:30 | PM.DS1 ---
DS: Providers Provider Date of admission: 02/13/24 23:20 Primary care physician: [facility] Admitting clinician: Rosendo Celis Attending physician on admission: Rosendo Celis Consults: 02/13/24 Consult to Dietitian Routine Reason for consultation: cyclic n/v Attending physician on discharge: Shaikh Van Discharging clinician: Shaikh Van Anticipated date of discharge: 02/16/24 DS: Diagnosis Discharge Diagnosis (1) Acute dehydration: (2) DKA (diabetic ketoacidosis): Qualifiers: Diabetes mellitus type: type 1 Diabetes mellitus complication detail: without coma Qualified Code(s): E10.10 - Type 1 diabetes mellitus with ketoacidosis without coma (3) Cyclic vomiting syndrome: (4) Diabetes: Qualifiers: Diabetes mellitus type: type 1 Diabetes mellitus complication status: without complication Qualified Code(s): E10.9 - Type 1 diabetes mellitus without complications (5) H/O deep venous thrombosis: (6) Leukocytosis: Qualifiers: Leukocytosis type: leukemoid reaction Qualified Code(s): D72.823 - Leukemoid reaction DS: Summary Hospital Course Hospital Course: 39 y o male with hx of T1 DM, presented to ED with nausea, vomiting and abdominal pain. Work up revealed high anion gap acidosis (AG 33), Elevated blood glucose (450) - c/w DKA. Patient also had mild MING with serum Cr of 1.4 ( Has normal serum cr at baseline). Patient was admitted to ICU and was started on IV fluids, continuous IV insulin with close monitoring of his blood glucose, serum electrolytes as per DKA protocol. Patient clinically improved during the course of admission with normalization of his anion gap and blood glucose and was transitioned to subcutaneous insulin on 02/15/2024. However he continued to have persistent nausea, vomiting and was unable to tolerate p.o. diet despite getting IV Reglan, Zofran and promethazine as needed. We ordered a CT abdomen pelvis to rule out acute intra-abdominal pathology and it did not reveal any significant finding to explain patient's nausea and vomiting. However, overnight he improved and is now tolerating oral diet but is still feels a little nauseous and has poor oral intake. Patient is medically stable for discharge and will need to follow-up with his PCP in 1 to 2 weeks. He was educated on importance of compliance with his diabetic regimen. He has both short acting and long-acting insulin at home and does not need a new prescription. Patient was educated on worrisome signs and symptoms that should prompt him to seek care in ER like persistent nausea, vomiting, worsening abdominal pain, poorly controlled blood glucose. Status at Discharge Functional status at discharge: independent ambulation Overall status at discharge: patient is back to baseline Time Spent with Patient Time attestation: Total time spent providing and/or coordinating discharge services: Time spent: greater than 30 minutes Exam Constitutional Vital Signs, click to edit/add: Last Vital Signs Temp 97.8 F 02/16/24 08:15 Pulse 88 02/16/24 08:15 Resp 16 02/16/24 08:15 BP 151/78 H 02/16/24 08:15 Pulse Ox 97 02/16/24 08:15 O2 Del Method Room Air 02/16/24 08:15 Documenting provider has reviewed patient's vital signs: yes Common normals: no apparent distress and oriented x3 General appearance: cooperative Respiratory Common normals: normal respiratory effort and clear to auscultation bilaterally Effort & inspection: able to speak in complete sentences Auscultation: clear to auscultation bilaterally Cardio Common normals: regular rate, S1 normal heart sound and S2 normal heart sound Rate: regular rate Heart sounds: S1 normal and S2 normal GI Common normals: Normal to inspection, nondistended, normoactive bowel sounds present, soft to palpation, non-tender and no hepatosplenomegaly Palpation: soft and no hepatosplenomegaly Neuro Common normals: oriented x3 and moves all extremities DS: Data Data Completed and Pending Labs on day of discharge: Labs from last 24 hours 02/16/24 02/15/24 02/15/24 05:19 23:02 22:42 WBC 10.8 RBC 5.32 Hgb 13.9 L Hct 41.4 L MCV 77.8 L MCH 26.1 MCHC 33.6 RDW 12.9 Plt Count 212 MPV 9.2 L Neut % (Auto) 74.9 Lymph % (Auto) 16.4 L [place] % (Auto) 7.6 Eos % (Auto) 0.4 L Baso % (Auto) 0.4 Neut # (Auto) 8.1 H Lymph # (Auto) 1.8 [place] # (Auto) 0.8 Eos # (Auto) 0.0 Baso # (Auto) 0.0 Abs Immat Gran (auto) 0.03 Imm/Tot Granulo (auto) 0.3 Sodium 137 Potassium 3.4 L Chloride 100 Carbon Dioxide 21.4 Anion Gap 19.0 BUN 7.0 Creatinine 0.66 L Est GFR ( Amer) >60 Est GFR (Non-Af Amer) >60 BUN/Creatinine Ratio 10.6 Glucose 138 H Calcium 8.0 L Total Bilirubin 0.5 AST 12 L ALT 12 L Alkaline Phosphatase 95 Total Protein 6.0 L Albumin 2.8 L Globulin 3.2 Albumin/Globulin Ratio 0.9 POC Glucose 101 66 L 02/15/24 15:36 WBC 11.9 H RBC 5.39 Hgb 14.1 Hct 43.1 MCV 80.0 MCH 26.2 MCHC 32.7 RDW 13.4 Plt Count 203 MPV 9.0 L Neut % (Auto) 86.6 H Lymph % (Auto) 8.8 L [place] % (Auto) 3.8 Eos % (Auto) 0.1 L Baso % (Auto) 0.3 Neut # (Auto) 10.3 H Lymph # (Auto) 1.0 L [place] # (Auto) 0.5 Eos # (Auto) 0.0 Baso # (Auto) 0.0 Abs Immat Gran (auto) 0.05 H Imm/Tot Granulo (auto) 0.4 Sodium 138 Potassium 3.9 Chloride 103 Carbon Dioxide 22.8 Anion Gap 16.1 BUN 16.0 Creatinine 0.83 Est GFR ( Amer) >60 Est GFR (Non-Af Amer) >60 BUN/Creatinine Ratio 19.3 Glucose 162 H Calcium 8.5 Total Bilirubin AST ALT Alkaline Phosphatase Total Protein Albumin Globulin Albumin/Globulin Ratio POC Glucose Discharge Plan Discharge Disposition: Home, Self-Care Condition: Critical Discharge Medications: New promethazine 25 mg tablet 12.5 mg PO Q6H PRN (Reason: nausea and vomiting) Qty: 20 0RF Continued dicyclomine 20 mg tablet 20 mg PO BID insulin aspart U-100 100 unit/mL (3 mL) insulin pen 1 sliding scale dose SUBCUT TID Eliquis DVT-PE Treat 30D Start 5 mg (74 tabs) tablets,dose pack 5 mg PO Q12H (DME) Dexcom G7 Sensor Device MISCELLANEOUS Changed insulin glargine [Lantus Solostar U-100 Insulin] 100 unit/mL (3 mL) insulin pen 45 unit SUBCUT BID Qty: 0 0RF Activity: increase activity as tolerated Diet: advance to your usual diet Print Language: [place] Forms: Portal Instructions Follow Up Appointments: F/u with PCP in one week
[2024-02-16] MEDS: POTASSIUM CHLORIDE 10 MEQ ER TABLET 40 MEQ PO (09:37)
[2024-02-16 11:47] VITALS: O2SAT 96
--- NOTE | 2024-02-17 12:39 | CM.DCFOLLOWU ---
1st attempt 02/17/24, no answer
--- NOTE | 2024-02-18 13:12 | CM.DCFOLLOWU ---
1st attempt. No answer
--- NOTE | 2024-02-19 14:32 | CM.DCFOLLOWU ---
3rd attempt. No answer
== END 2024-02-16 11:10 | disposition home or self-care (01) | DRG 420 ==
LOC: ER 22:46 → ICU 23:21 → MS 02-15 13:52
PROVIDERS: Emergency Medicine; Family Medicine; Registered Nurse; Admitting Provider Internal Medicine; Emergency Provider Student in an Organized Health Care Education/Training Program; Visit Provider Internal Medicine
DX: E10.10 Type 1 diabetes mellitus with ketoacidosis without coma (principal); R11.15 Cyclical vomiting syndrome unrelated to migraine; R00.0 Tachycardia, unspecified; R06.03 Acute respiratory distress; E87.1 Hypo-osmolality and hyponatremia; N17.9 Acute kidney failure, unspecified; D69.6 Thrombocytopenia, unspecified; D72.829 Elevated white blood cell count, unspecified; E86.0 Dehydration; R10.84 Generalized abdominal pain; F17.210 Nicotine dependence, cigarettes, uncomplicated; Z86.718 Personal history of other venous thrombosis and embolism; Z79.01 Long term (current) use of anticoagulants; Z79.4 Long term (current) use of insulin
CPT/HCPCS: 36415; 51798; 74022; 74176; 80048; 80053; 80307; 80320; 81003; 82800; 82948; 83036; 83605; 83690; 83735; 84100; 84484; 85025; 93005; 94667; 94668; 94761; 96361; 96365; 96375; 99285; 99406; J0500; J1630; J1885; J2250; J2405; J2765

== ENCOUNTER 2024-05-07 18:59 | Emergency (ER) | payer MEDICAID, SELFPAY ==
[2024-05-07 19:08] VITALS: BP 152/91; PULSE 101; TEMP 37.4; O2SAT 98; BMI 31.0
--- NOTE | 2024-05-07 19:25 | ED.GENADUL1 ---
HPI HPI - General Adult General Chief complaint: Shortness of Breath/Dyspnea Stated complaint: Left side pain Time Seen by Provider: 05/07/24 19:14 Source: patient Mode of arrival: walk-in History of Present Illness HPI narrative: This 39-year-old male with history of what he states is type 2 diabetes but in the history states type 1 diabetes presents for evaluation of left-sided flank pain that started yesterday. He points to the mid to lower flank area as area of greatest pain. Pain is worse with deep breathing. He denies any injury to his back. He states he is short of breath because he cannot take a deep breath due to the pain. He does not have a history of kidney stones. He did have a DVT in the past year which he states was likely because he was admitted to the ICU. He was placed on blood thinners but is not currently on any blood thinners. He is no longer having any pain in his lower extremities. He has a low-grade fever upon arrival and is diaphoretic. He denies any aly chest pain tachycardia dizziness or syncope. He has no abdominal pain. He has not had any urinary symptoms. He does admit to tobacco use. He states that sugars have been in the normal range and his Dexcom monitor shows a glucose of 125. Related Data Home Medications ?Medication ?Instructions ?Recorded ?Confirmed apixaban 5 mg (74 tabs) tablets in 5 mg PO Q12H 02/13/24 02/13/24 a dose pack (AMGas DVT-PE Treat 30D Start) dicyclomine 20 mg tablet 20 mg PO BID 02/13/24 02/13/24 insulin aspart U-100 100 unit/mL 1 sliding scale dose subcut TID 02/13/24 02/13/24 (3 mL) subcutaneous pen blood-glucose sensor (Dexcom G7 02/14/24 02/14/24 Sensor device) Previous Rx's ?Medication ?Instructions ?Recorded insulin glargine 100 unit/mL (3 45 unit (0.45 mL) subcut BID #0 mL 02/16/24 mL) subcutaneous pen (Lantus Solostar U-100 Insulin) promethazine 25 mg tablet 12.5 mg (1/2 x 25 mg) PO Q6H PRN 02/16/24 nausea and vomiting #20 tabs Allergies Allergy/AdvReac Type Severity Reaction Status Date / Time Penicillins Allergy Severe Swelling Verified 02/13/24 18:56 of Lip/Tongue/Throat Opioid HPI Opioid Management Most Recent Opioid Data: Last Pain Scale 3 02/16/24 08:00 02/16/24 Last ORT Total Score 1 02/13/24 23:26 02/13/24 Last ORT Risk Category Low Risk 02/13/24 23:26 02/13/24 Ur Phencyclidine Scrn Negative (NEGATIVE) 02/14/24 13:50 02/14/24 Review of Systems ROS Status of ROS 10 or more systems reviewed and unremarkable except as noted in history and below [facility] Medical History (Updated 05/07/24 @ 22:44 by Cady Hines MD) Cyclic vomiting syndrome ?R11.15 - Cyclical vomiting syndrome unrelated to migraine (ICD-10) H/O deep venous thrombosis ?Z86.718 - Personal history of other venous thrombosis and embolism (ICD-10) DVT of lower extremity (deep venous thrombosis) ?I82.409 - Acute embolism and thrombosis of unspecified deep veins of unspecified lower extremity (ICD-10) Diabetes ?E11.9 - Type 2 diabetes mellitus without complications (ICD-10) Social History (Updated 02/13/24 @ 23:15 by Pearl Saenz) Smoking status: Current some day smoker Nicotine containing products detail: half pack daily Non-prescribed substance use: denies use Highest level of school completed/degree received: don't know Little interest or pleasure in doing things: not at all Feeling down, depressed, or hopeless: not at all Exam Narrative Exam Narrative: Vital signs and Nursing Notes reviewed: Patient has a low-grade fever, he is tachycardic, he is tachypneic and has an elevated blood pressure, he is not hypoxic with pulse ox of 98% on room air General: Awake, alert, oriented, nontoxic but uncomfortable appearing adult male, he is grunting with each respiration due to pain in his left flank, speaking in complete sentences HEENT: Normocephalic atraumatic, mucous membranes are moist and pink, eyes are clear, normal conjunctiva, vision is grossly intact, posterior pharynx is normal in appearance. Neck: Supple, no meningeal signs, no anterior or posterior cervical lymphadenopathy Chest: Patient is taking very shallow breaths due to the pain in his left flank, lungs are otherwise clear with good air entry, no wheezing rhonchi or rales appreciated no accessory muscle use patient is grunting with each respiration due to the pain in his left flank CVS: Regular rate and rhythm S1-S2, no murmurs rubs or gallops, pulses are brisk and equal bilaterally ABD: Soft, nondistended, nontender, no rebound guarding or rigidity, bowel sounds are normal, no pulsatile masses appreciated Musc: Tenderness to palpation in the mid left posterior flank area this is partially overlying the lower ribs and the upper kidney area, no skin rash noted in this area Extremities: Moving all extremities, no lower extremity tenderness or swelling noted, negative Homans' sign, pulses are brisk and equal bilaterally Skin: Normal in appearance without rash,pallor, petechiae or purpura Neuro: No focal deficits Constitutional Vital Signs, click to edit/add: Last Vital Signs Temp 99.3 F 05/07/24 19:08 Pulse 101 H 05/07/24 19:08 Resp 24 H 05/07/24 19:08 BP 152/91 H 05/07/24 19:08 Pulse Ox 98 05/07/24 19:08 O2 Del Method Room Air 05/07/24 19:08 Course Vital Signs Vital signs: Vital Signs Temperature 99.3 F 05/07/24 19:08 Pulse Rate 101 H 05/07/24 19:08 Respiratory Rate 24 H 05/07/24 19:08 Blood Pressure 152/91 H 05/07/24 19:08 Pulse Oximetry 98 05/07/24 19:08 Oxygen Delivery Method Room Air 05/07/24 19:08 Temperature 99.3 F 05/07/24 19:08 Pulse Rate 101 H 05/07/24 19:08 Respiratory Rate 24 H 05/07/24 19:08 Blood Pressure 152/91 H 05/07/24 19:08 Pulse Oximetry 98 05/07/24 19:08 Oxygen Delivery Method Room Air 05/07/24 19:08 Medical Decision Making MDM Narrative Medical decision making narrative: This 39-year-old male, smoker with a history of diabetes presents for evaluation of left-sided flank/lower rib cage area pain. Symptoms started yesterday, worsened today. Upon arrival he was noted to have a low-grade fever was mildly tachycardic but not hypoxic. He had grunting respirations due to the pain in his left flank but his lungs are otherwise clear. EKG done upon arrival was a sinus rhythm at 84 bpm with no acute changes. An IV was placed and he was medicated with IV fluids, Zofran, Toradol and morphine. The patient has recently had a DVT and was on blood thinners but has been off of them for the past several months. He states this is in concert with his family physician. Due to these findings a D-dimer as well as cardiac workup urinalysis and lactic acid with 2 sets of blood cultures were ordered. His white count is mildly elevated at 12.1. He has a stable hemoglobin. Electrolytes are normal. Acetone is negative. Troponin is normal. Lactic acid is normal. Anion gap is normal. Liver function tests are normal. D-dimer was mildly elevated at 0.65. Urinalysis is negative. CT scan of the chest was ordered to rule out pulmonary embolism as well as a CT scan of the abdomen pelvis due to the pain being on the left side between the rib cage and torso. Before the CT scan results were available the patient requested additional pain medication and was remedicated with a dose of IV morphine. It appears that he has a pneumonia on his CT scan he was also given IV Levaquin as he is penicillin allergic. He appears much more comfortable at this time. He has not had any episodes of hypoxia. The results of the CT scan were discussed with the patient. He declines admission at this time stating that he would rather go home with pain medicine and antibiotics. He was encouraged to return the emergency department for worsening symptoms, shortness of breath and to follow-up closely with his family physician until resolution of this pneumonia. He will be referred to outpatient pulmonology. Medical Records Medical records reviewed: Yes I reviewed the patient's medical records Medical records narrative: The [address] [address] XRay Report Signed Patient: ROSHAN HASSAN MR#: [id number] : 1985 Acct:[id number] Age/Sex: 39 / M ADM Date: 05/07/24 Loc: ER Attending Dr: Ordering Physician: Cady Hines Date of Service: 05/07/24 Procedure(s): XR chest 1V Accession Number(s): [id number] cc: [facility] ; Cady Marker~ The [address] [id number] Patient Name: ROSHAN HASSAN MRN: [id number] date: 1985 Sex: M Assigned Patient Location: ER Current Patient Location: ER Accession/Order Number: [id number] Exam Date: 05/07/2024 19:50 Report Date: 05/07/2024 20:20 At the request of: CADY MARKER Procedure: XR chest 1V EXAM: XR chest 1V at 1941 hours HISTORY: r/o PTX COMPARISON: 01/10/2024 TECHNIQUE: AP upright portable chest x-ray FINDINGS: There is a very small amount of atelectasis or infiltrate seen at the left lung base. The lungs otherwise clear and there is no evidence of an effusion or pneumothorax. The heart is not enlarged and the vasculature is not distended. The osseous structures are grossly intact. XR/XR chest 1V IMPRESSION: There is a very small amount of atelectasis or infiltrate at the left lung base. There is no evidence of a pneumothorax at this time. There is no evidence of cardiac decompensation, the overall appearance of the chest is otherwise unchanged. Electronically authenticated by: FILIBERTO STOLL Date: 05/07/2024 20:20 [place] [address] CT Scan Report Signed Patient: ROSHAN HASSAN MR#: [id number] : 1985 Acct:[id number] Age/Sex: 39 / M ADM Date: 05/07/24 Loc: ER Attending Dr: Ordering Physician: Cady Hines Date of Service: 05/07/24 Procedure(s): CT abdomen pelvis w con Accession Number(s): [id number] cc: [facility] ~ The [address] [address] Patient Name: ROSHAN HASSAN MRN: [id number] date: 1985 Sex: M Assigned Patient Location: ER Current Patient Location: ED.MAIN Accession/Order Number: [id number] Exam Date: 05/07/2024 20:40 Report Date: 05/07/2024 22:00 At the request of: CADY MARKER Procedure: CT abdomen pelvis w con EXAM: CT angio chest, CT abdomen pelvis w con HISTORY: l flank pain , elevated d dimer COMPARISON: 02/15/2024 TECHNIQUE: CT angiography of the pulmonary arteries CT of the abdomen and pelvis following the administration of intravenous contrast. Coronal and sagittal MIP (maximum intensity projection) images were performed of the chest. Dose reduction techniques were achieved by using automated exposure control and/or adjustment of mA and/or kV according to patient size and/or use of iterative reconstruction technique. FINDINGS: Satisfactory opacification of the pulmonary arteries TUBES AND IMPLANTS: None. CHEST: CHEST WALL AND LOWER NECK: Unremarkable. MEDIASTINUM AND DIDI: No hematoma. No enlarged lymph nodes by CT size criteria. Small hiatal hernia AORTA: No aneurysm HEART: Borderline enlarged PULMONARY ARTERIES: No embolism CORONARY ARTERIES: No coronary artery calcifications. LUNG AND AIRWAYS: There is a thick-walled cavitary lesion measuring 1.5 by 1.2 centimeters seen in the left lower lobe. Bandlike opacities are seen in the lingula and left lower lobe PLEURA: Unremarkable. BONES: No suspicious lesions. ABDOMEN and PELVIS ABDOMINAL WALL AND SOFT TISSUES: Unremarkable. BONES: No suspicious lesions. Studies ARTERIES: No aortoiliac aneurysm. VEINS: Unremarkable. LYMPH NODES: Unremarkable. PERITONEUM/ RETROPERITONEUM: Unremarkable. BOWEL: Moderate wall thickening of the rectum and mild wall thickening of the distal colon to the splenic flexure. APPENDIX: Not identified. LIVER: No suspicious lesions. GALLBLADDER: Unremarkable. BILE DUCTS: Not dilated SPLEEN: Unremarkable. PANCREAS: Unremarkable. ADRENALS: Unremarkable. KIDNEYS/ URETERS: Unremarkable. REPRODUCTIVE ORGANS: Unremarkable URINARY BLADDER: Moderate to severe wall thickening CT/CT abdomen pelvis w con IMPRESSION: 1. Thick-walled cavitary lesion in the left lower lobe measuring up to 1.5 centimeters. This may represent an infectious or neoplastic process. 2. Bandlike opacities seen in the left lower lobe and lingula are more suggestive of atelectasis than pneumonia. 3. Moderate wall thickening of the rectum and mild wall thickening of the distal colon to the splenic flexure concerning for infectious or inflammatory proctocolitis. 4. Ischemic colitis considered less likely. 5. Moderate to severe wall thickening of the bladder concerning for cystitis. Electronically authenticated by: STARR LUO Date: 05/07/2024 22:[address] [address] [address] Scan Report Signed Patient: ROSHAN HASSAN MR#: [id number] : 1985 Acct:[id number] Age/Sex: 39 / M ADM Date: 05/07/24 Loc: ER Attending Dr: Ordering Physician: Cady Hines Date of Service: 05/07/24 Procedure(s): CT angio chest Accession Number(s): [id number] cc: [facility] ~ The [place] [address] Patient Name: ROSHAN HASSAN MRN: [id number] date: 1985 Sex: M Assigned Patient Location: ER Current Patient Location: ED.MAIN Accession/Order Number: [id number] Exam Date: 05/07/2024 20:40 Report Date: 05/07/2024 22:00 At the request of: CADY HINES Procedure: CT angio chest EXAM: CT angio chest, CT abdomen pelvis w con HISTORY: l flank pain , elevated d dimer COMPARISON: 02/15/2024 TECHNIQUE: CT angiography of the pulmonary arteries CT of the abdomen and pelvis following the administration of intravenous contrast. Coronal and sagittal MIP (maximum intensity projection) images were performed of the chest. Dose reduction techniques were achieved by using automated exposure control and/or adjustment of mA and/or kV according to patient size and/or use of iterative reconstruction technique. FINDINGS: Satisfactory opacification of the pulmonary arteries TUBES AND IMPLANTS: None. CHEST: CHEST WALL AND LOWER NECK: Unremarkable. MEDIASTINUM AND DIDI: No hematoma. No enlarged lymph nodes by CT size criteria. Small hiatal hernia AORTA: No aneurysm HEART: Borderline enlarged PULMONARY ARTERIES: No embolism CORONARY ARTERIES: No coronary artery calcifications. LUNG AND AIRWAYS: There is a thick-walled cavitary lesion measuring 1.5 by 1.2 centimeters seen in the left lower lobe. Bandlike opacities are seen in the lingula and left lower lobe PLEURA: Unremarkable. BONES: No suspicious lesions. ABDOMEN and PELVIS ABDOMINAL WALL AND SOFT TISSUES: Unremarkable. BONES: No suspicious lesions. Studies ARTERIES: No aortoiliac aneurysm. VEINS: Unremarkable. LYMPH NODES: Unremarkable. PERITONEUM/ RETROPERITONEUM: Unremarkable. BOWEL: Moderate wall thickening of the rectum and mild wall thickening of the distal colon to the splenic flexure. APPENDIX: Not identified. LIVER: No suspicious lesions. GALLBLADDER: Unremarkable. BILE DUCTS: Not dilated SPLEEN: Unremarkable. PANCREAS: Unremarkable. ADRENALS: Unremarkable. KIDNEYS/ URETERS: Unremarkable. REPRODUCTIVE ORGANS: Unremarkable URINARY BLADDER: Moderate to severe wall thickening CT/CT angio chest IMPRESSION: 1. Thick-walled cavitary lesion in the left lower lobe measuring up to 1.5 centimeters. This may represent an infectious or neoplastic process. 2. Bandlike opacities seen in the left lower lobe and lingula are more suggestive of atelectasis than pneumonia. 3. Moderate wall thickening of the rectum and mild wall thickening of the distal colon to the splenic flexure concerning for infectious or inflammatory proctocolitis. 4. Ischemic colitis considered less likely. 5. Moderate to severe wall thickening of the bladder concerning for cystitis. Electronically authenticated by: STARR LUO Date: 05/07/2024 22:00 Lab Data Labs: Lab Results 05/07/24 Range/Units 19:30 WBC 12.1 H (4.0-11.0) 10^3/uL RBC 5.85 (4.70-6.10) 10^6/uL Hgb 15.2 (14.0-18.0) g/dL Hct 46.4 (42.0-54.0) % MCV 79.3 L (80.0-94.0) fL MCH 26.0 (25.9-34.0) pg MCHC 32.8 (29.9-35.2) g/dL RDW 13.1 (11.0-15.0) % Plt Count 254 (150-450) 10^3/uL MPV 9.4 L (9.5-13.5) fL Neut % (Auto) 67.8 (43.0-75.0) % Lymph % (Auto) 20.0 L (20.5-60.0) % [place] % (Auto) 10.7 (1.7-12.0) % Eos % (Auto) 0.8 L (0.9-7.0) % Baso % (Auto) 0.2 (0.2-2.0) % Neut # (Auto) 8.2 H (1.4-6.5) 10^3/uL Lymph # (Auto) 2.4 (1.2-3.8) 10^3/uL [place] # (Auto) 1.3 H (0.3-0.8) 10^3/uL Eos # (Auto) 0.1 (0.0-0.7) 10^3/uL Baso # (Auto) 0.0 (0.0-0.1) 10^3/uL Abs Immat Gran (auto) 0.06 H (0.00-0.03) 10^3/uL Imm/Tot Granulo (auto) 0.5 (0.0-0.5) % D-Dimer 0.65 H* (<=0.59) mg/L FEU Sodium 139 (136-145) mmol/L Potassium 4.0 (3.5-5.1) mmol/L Chloride 103 (98-107) mmol/L Carbon Dioxide 27.3 (21.0-32.0) mmol/L Anion Gap 12.7 BUN 12.0 (7.0-18.0) mg/dL Creatinine 0.98 (0.70-1.30) mg/dL Est GFR ( Amer) >60 (>=60 mL/min/1.73m^2) Est GFR (Non-Af Amer) >60 (>=60 mL/min/1.73m^2) BUN/Creatinine Ratio 12.2 Glucose 131 H (74-106) mg/dL Lactate 1.9 (0.4-2.0) mmol/L Calcium 9.2 (8.5-10.1) mg/dL Total Bilirubin 0.1 L (0.2-1.0) mg/dL AST 8 L (15-37) U/L ALT 19 (16-63) U/L Alkaline Phosphatase 106 (46-116) U/L Troponin I High Sens <4.0 L (4.0-76.1) pg/mL Total Protein 7.3 (6.4-8.2) g/dL Albumin 3.4 (3.4-5.0) g/dL Globulin 3.9 g/dL Albumin/Globulin Ratio 0.9 Urine Color Yellow (YELLOW) Urine Clarity Clear (CLEAR) Urine pH 6.0 (5.0-9.0) Ur Specific [place] 1.025 (1.005-1.025) Urine Protein Negative (NEG/TRACE) mg/dL Urine Glucose (UA) >=1000 A (NEGATIVE) mg/dL Urine Ketones Negative (NEGATIVE) mg/dL Urine Occult Blood Negative (NEGATIVE) Urine Nitrite Negative (NEGATIVE) Urine Bilirubin Negative (NEGATIVE) Urine Urobilinogen 0.2 (0.2-1.0) EU/dL Ur Leukocyte Esterase Negative (NEGATIVE) Urine RBC 0-2 (0-2) #/HPF Urine WBC 0-2 A (NONE SEEN) #/HPF Ur Squamous Epith Cells Few A (NONE/RARE) #/LPF Urine Crystals None seen (None Seen) #/HPF Urine Bacteria None seen (NONE SEEN) #/HPF Urine Casts None seen (NONE SEEN) #/LPF Urine Mucus None seen (NONE SEEN) Acetone, Qual Negative (NEGATIVE) ECG Data Attestation: I personally reviewed and interpreted this ECG as follows: (Sinus rhythm 84 bpm, normal axis, nonspecific ST changes, no acute ST segment elevation or T wave inversion) Discharge Plan Discharge Chief Complaint: Shortness of Breath/Dyspnea Clinical Impression: Cavitary pneumonia Patient Disposition: Home, Self-Care Time of Disposition Decision: 22:43 Condition: Good Prescriptions / Home Meds: No Action dicyclomine 20 mg tablet 20 mg PO BID insulin aspart U-100 100 unit/mL (3 mL) insulin pen 1 sliding scale dose SUBCUT TID Eliquis DVT-PE Treat 30D Start 5 mg (74 tabs) tablets,dose pack 5 mg PO Q12H (DME) Dexcom G7 Sensor Device MISCELLANEOUS promethazine 25 mg tablet 12.5 mg PO Q6H PRN (Reason: nausea and vomiting) Qty: 20 0RF insulin glargine [Lantus Solostar U-100 Insulin] 100 unit/mL (3 mL) insulin pen 45 unit SUBCUT BID Qty: 0 0RF Print Language: Martiniquais Instructions: Community Acquired Pneumonia (ED), Lung Abscess (DC) Referrals: [facility] [Primary Care Provider] - 1 week Patrice Molina DO [Physician] - 1 week
--- NOTE | 2024-05-07 19:26 | ECG_ITS ---
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
--- NOTE | 2024-05-07 19:36 | XR_ITS ---
The [address] [address] Patient Name: ROSHAN HASSAN MRN: [id number] date: 1985 Sex: M Assigned Patient Location: ER Current Patient Location: ER Accession/Order Number: [id number] Exam Date: 05/07/2024 19:50 Report Date: 05/07/2024 20:20 At the request of: CONSUELO MARKER Procedure: XR chest 1V EXAM: XR chest 1V at 1941 hours HISTORY: r/o PTX COMPARISON: 01/10/2024 TECHNIQUE: AP upright portable chest x-ray FINDINGS: There is a very small amount of atelectasis or infiltrate seen at the left lung base. The lungs otherwise clear and there is no evidence of an effusion or pneumothorax. The heart is not enlarged and the vasculature is not distended. The osseous structures are grossly intact. XR/XR chest 1V IMPRESSION: There is a very small amount of atelectasis or infiltrate at the left lung base. There is no evidence of a pneumothorax at this time. There is no evidence of cardiac decompensation, the overall appearance of the chest is otherwise unchanged. Electronically authenticated by: FILIBERTO STOLL Date: 05/07/2024 20:20
[2024-05-07] MEDS: ACETAMINOPHEN 325 MG TABLET 650 MG PO (19:40)
[2024-05-07 19:41] LABS: Bilirubin Urine NEGATIVE (NEGATIVE); Blood Urine NEGATIVE (NEGATIVE); Clarity Urine CLEAR (CLEAR); Glucose Urine UA >=1000 mg/dL (NEGATIVE); Ketones Urine NEGATIVE (NEGATIVE); Leukocyte Esterase Urine NEGATIVE (NEGATIVE); Nitrite Urine NEGATIVE (NEGATIVE); Protein Urine NEGATIVE (NEG/TRACE); Specific Gravity Urine 1.025 (1.005-1.025); Urobilinogen Urine 0.2 EU/dL (0.2-1.0)
[2024-05-07] MEDS: MORPHINE SULFATE 4 MG/ML VIAL IV ×2 (19:41→22:09)
[2024-05-07] MEDS: KETOROLAC TROMETHAMINE 30 MG/ML VIAL IVP (19:41)
[2024-05-07 19:42] LABS: Basophils Percent Auto 0.2 % (0.2-2.0); Eosinophils Absolute Auto 0.1 10^3/uL (0.0-0.7); Eosinophils Percent Auto 0.8 % (0.9-7.0); Hematocrit 46.4 % (42.0-54.0); Hemoglobin 15.2 g/dL (14.0-18.0); Immature Granulocytes Abs Auto 0.06 10^3/uL (0.00-0.03); Immature Granulocytes Pct Auto 0.5 % (0.0-0.5); Lymphocytes Absolute Auto 2.4 10^3/uL (1.2-3.8); Mean Corpuscular HGB Conc 32.8 g/dL (29.9-35.2); Mean Corpuscular Volume 79.3 fL (80.0-94.0); Mean Platelet Volume 9.4 fL (9.5-13.5); Monocytes Absolute Auto 1.3 10^3/uL (0.3-0.8); Monocytes Percent Auto 10.7 % (1.7-12.0); Neutrophils Absolute Auto 8.2 10^3/uL (1.4-6.5); Neutrophils Percent Auto 67.8 % (43.0-75.0); Platelet Count 254 10^3/uL (150-450); Red Blood Count 5.85 10^6/uL (4.70-6.10); Red Cell Distribution Width 13.1 % (11.0-15.0); White Blood Count 12.1 10^3/uL (4.0-11.0)
[2024-05-07 19:53] LABS: Color Urine YELLOW (YELLOW)
[2024-05-07 19:56] LABS: Bacteria Urine NONE SEEN #/HPF (NONE SEEN); Cast Seen? NONE SEEN #/LPF (NONE SEEN); Crystals Seen? None Seen #/HPF (None Seen); Mucus Urine NONE SEEN (NONE SEEN); RBC Urine 0-2 #/HPF (0-2); Squamous Epithelial Cell Urine FEW #/LPF (NONE/RARE); WBC Urine 0-2 #/HPF (NONE SEEN)
[2024-05-07 19:57] LABS: Acetone NEGATIVE (NEGATIVE)
[2024-05-07 20:01] LABS: Alanine Aminotransferase 19 U/L (16-63); Albumin Globulin Ratio 0.9; Albumin Level 3.4 g/dL (3.4-5.0); Alkaline Phosphatase 106 U/L (46-116); Anion Gap 12.7; Aspartate Amino Transferase 8 U/L (15-37); BUN Creatinine Ratio 12.2; Bilirubin Total 0.1 mg/dL (0.2-1.0); Calcium 9.2 mg/dL (8.5-10.1); Carbon Dioxide 27.3 mmol/L (21.0-32.0); Chloride 103 mmol/L (98-107); Estimated GFR (African America >60 (>=60 mL/min/1.73m^2); Estimated GFR (Non-African Ame >60 (>=60 mL/min/1.73m^2); Globulin 3.9 g/dL; Glucose 131 mg/dL (74-106); Sodium 139 mmol/L (136-145); Total Protein 7.3 g/dL (6.4-8.2)
[2024-05-07 20:02] LABS: Troponin I High Sensitivity <4.0 pg/mL (4.0-76.1)
[2024-05-07 20:03] LABS: Lactate/Lactic Acid 1.9 mmol/L (0.4-2.0)
[2024-05-07 20:07] LABS: D Dimer 0.65 mg/L FEU (<=0.59)
--- NOTE | 2024-05-07 20:07 | CT_ITS ---
[address] [address] Patient Name: ROSHAN HASSAN MRN: [id number] date: 1985 Sex: M Assigned Patient Location: ER Current Patient Location: .[facility] Accession/Order Number: [id number] Exam Date: 05/07/2024 20:40 Report Date: 05/07/2024 22:00 At the request of: CONSUELO MARKER Procedure: CT angio chest EXAM: CT angio chest, CT abdomen pelvis w con HISTORY: l flank pain , elevated d dimer COMPARISON: 02/15/2024 TECHNIQUE: CT angiography of the pulmonary arteries CT of the abdomen and pelvis following the administration of intravenous contrast. Coronal and sagittal MIP (maximum intensity projection) images were performed of the chest. Dose reduction techniques were achieved by using automated exposure control and/or adjustment of mA and/or kV according to patient size and/or use of iterative reconstruction technique. FINDINGS: Satisfactory opacification of the pulmonary arteries TUBES AND IMPLANTS: None. CHEST: CHEST WALL AND LOWER NECK: Unremarkable. MEDIASTINUM AND DIDI: No hematoma. No enlarged lymph nodes by CT size criteria. Small hiatal hernia AORTA: No aneurysm HEART: Borderline enlarged PULMONARY ARTERIES: No embolism CORONARY ARTERIES: No coronary artery calcifications. LUNG AND AIRWAYS: There is a thick-walled cavitary lesion measuring 1.5 by 1.2 centimeters seen in the left lower lobe. Bandlike opacities are seen in the lingula and left lower lobe PLEURA: Unremarkable. BONES: No suspicious lesions. ABDOMEN and PELVIS ABDOMINAL WALL AND SOFT TISSUES: Unremarkable. BONES: No suspicious lesions. Studies ARTERIES: No aortoiliac aneurysm. VEINS: Unremarkable. LYMPH NODES: Unremarkable. PERITONEUM/ RETROPERITONEUM: Unremarkable. BOWEL: Moderate wall thickening of the rectum and mild wall thickening of the distal colon to the splenic flexure. APPENDIX: Not identified. LIVER: No suspicious lesions. GALLBLADDER: Unremarkable. BILE DUCTS: Not dilated SPLEEN: Unremarkable. PANCREAS: Unremarkable. ADRENALS: Unremarkable. KIDNEYS/ URETERS: Unremarkable. REPRODUCTIVE ORGANS: Unremarkable URINARY BLADDER: Moderate to severe wall thickening CT/CT angio chest IMPRESSION: 1. Thick-walled cavitary lesion in the left lower lobe measuring up to 1.5 centimeters. This may represent an infectious or neoplastic process. 2. Bandlike opacities seen in the left lower lobe and lingula are more suggestive of atelectasis than pneumonia. 3. Moderate wall thickening of the rectum and mild wall thickening of the distal colon to the splenic flexure concerning for infectious or inflammatory proctocolitis. 4. Ischemic colitis considered less likely. 5. Moderate to severe wall thickening of the bladder concerning for cystitis. Electronically authenticated by: STARR LUO Date: 05/07/2024 22:00
--- NOTE | 2024-05-07 20:07 | CT_ITS ---
[address] [address] Patient Name: ROSHAN HASSAN MRN: [id number] date: 1985 Sex: M Assigned Patient Location: ER Current Patient Location: .[facility] Accession/Order Number: [id number] Exam Date: 05/07/2024 20:40 Report Date: 05/07/2024 22:00 At the request of: CONSUELO MARKER Procedure: CT abdomen pelvis w con EXAM: CT angio chest, CT abdomen pelvis w con HISTORY: l flank pain , elevated d dimer COMPARISON: 02/15/2024 TECHNIQUE: CT angiography of the pulmonary arteries CT of the abdomen and pelvis following the administration of intravenous contrast. Coronal and sagittal MIP (maximum intensity projection) images were performed of the chest. Dose reduction techniques were achieved by using automated exposure control and/or adjustment of mA and/or kV according to patient size and/or use of iterative reconstruction technique. FINDINGS: Satisfactory opacification of the pulmonary arteries TUBES AND IMPLANTS: None. CHEST: CHEST WALL AND LOWER NECK: Unremarkable. MEDIASTINUM AND DIDI: No hematoma. No enlarged lymph nodes by CT size criteria. Small hiatal hernia AORTA: No aneurysm HEART: Borderline enlarged PULMONARY ARTERIES: No embolism CORONARY ARTERIES: No coronary artery calcifications. LUNG AND AIRWAYS: There is a thick-walled cavitary lesion measuring 1.5 by 1.2 centimeters seen in the left lower lobe. Bandlike opacities are seen in the lingula and left lower lobe PLEURA: Unremarkable. BONES: No suspicious lesions. ABDOMEN and PELVIS ABDOMINAL WALL AND SOFT TISSUES: Unremarkable. BONES: No suspicious lesions. Studies ARTERIES: No aortoiliac aneurysm. VEINS: Unremarkable. LYMPH NODES: Unremarkable. PERITONEUM/ RETROPERITONEUM: Unremarkable. BOWEL: Moderate wall thickening of the rectum and mild wall thickening of the distal colon to the splenic flexure. APPENDIX: Not identified. LIVER: No suspicious lesions. GALLBLADDER: Unremarkable. BILE DUCTS: Not dilated SPLEEN: Unremarkable. PANCREAS: Unremarkable. ADRENALS: Unremarkable. KIDNEYS/ URETERS: Unremarkable. REPRODUCTIVE ORGANS: Unremarkable URINARY BLADDER: Moderate to severe wall thickening CT/CT abdomen pelvis w con IMPRESSION: 1. Thick-walled cavitary lesion in the left lower lobe measuring up to 1.5 centimeters. This may represent an infectious or neoplastic process. 2. Bandlike opacities seen in the left lower lobe and lingula are more suggestive of atelectasis than pneumonia. 3. Moderate wall thickening of the rectum and mild wall thickening of the distal colon to the splenic flexure concerning for infectious or inflammatory proctocolitis. 4. Ischemic colitis considered less likely. 5. Moderate to severe wall thickening of the bladder concerning for cystitis. Electronically authenticated by: STARR LUO Date: 05/07/2024 22:00
[2024-05-07] MEDS: LEVOFLOXACIN IN DEXTROSE 5 % 750 MG/150 ML PREMIX 100 MG IV (22:10)
== END 2024-05-08 00:05 | disposition home or self-care (01) ==
PROVIDERS: Emergency Provider Emergency Medicine
DX: J18.9 Pneumonia, unspecified organism (principal); E11.9 Type 2 diabetes mellitus without complications; R06.02 Shortness of breath; R79.89 Other specified abnormal findings of blood chemistry; Z86.718 Personal history of other venous thrombosis and embolism; R50.9 Fever, unspecified; Z79.4 Long term (current) use of insulin; F17.210 Nicotine dependence, cigarettes, uncomplicated; Z88.0 Allergy status to penicillin
CPT/HCPCS: 36415; 71045; 71275; 74177; 80053; 81001; 82009; 83605; 84484; 85025; 85378; 87040; 93005; 96365; 96375; 96376; 99285; J1885; J2270; Q9967

== ENCOUNTER 2024-05-20 11:48 | Inpatient (IN) | payer MEDICAID, SELFPAY ==
[2024-05-20] VITALS (13 sets, daily range): BP systolic 95–127; BP diastolic 66–91; PULSE 107–120; TEMP 36.9–37.7; O2SAT 87–96; BMI 31.3; BMI 31.4
--- NOTE | 2024-05-20 12:17 | XR_ITS ---
The [address] [address] Patient Name: ROSHAN HASSAN MRN: [id number] date: 1985 Sex: M Assigned Patient Location: ER Current Patient Location: ER Accession/Order Number: [id number] Exam Date: 05/20/2024 12:20 Report Date: 05/20/2024 12:42 At the request of: JACINTO EDDY Procedure: XR chest 1V EXAMINATION: XR chest 1V HISTORY: cough sob L lung pain COMPARISON: XR chest 05/07/2024, 01/10/2024 FINDINGS: LUNGS: Elevated left hemidiaphragm with mild stranding within left lung base. Mild patchy opacities within lateral right lung base. VASCULATURE: No increased pulmonary vasculature. PLEURA: No pneumothorax, effusion, or pleural thickening. CARDIAC: No cardiomegaly or cardiac silhouette abnormality. MEDIASTINUM: No visible mass or adenopathy. BONES: No fracture or visible bone lesion. OTHER: Negative. XR/XR chest 1V IMPRESSION: 1. Elevated left hemidiaphragm with new mild bibasilar infiltrates versus atelectasis. Electronically authenticated by: RACHANA LASSITER Date: 05/20/2024 12:42
--- NOTE | 2024-05-20 12:19 | ED.GENADUL1 ---
HPI HPI - General Adult General Chief complaint: Shortness of Breath/Dyspnea Stated complaint: POSSIBLE PHNEMONIA Time Seen by Provider: 05/20/24 11:57 Mode of arrival: walk-in History of Present Illness HPI narrative: Patient presents to ED complaining of shortness of breath. He was brought back from the waiting room for grunting and tachypnea every time he breathes he is grunting hard. Patient states he has left-sided lung pain. He has pain with breathing and he is grunting to support his breathing. He was apparently here about 12 days ago and diagnosed with pneumonia. He took his medication as directed but has been feeling worse the past couple days. When he woke up this morning he complained of severe left lung pain and pain with breathing and mild respiratory distress. He does not have a fever here. He also reports some abdominal pain but its its more of a issue for him. He does have a history of DVT he is on Eliquis he is a diabetic and is on insulin. He does have issues with gastroparesis. Patient is speaking in short sentences and states he is in too much pain to talk and he is requesting pain medication. Related Data Home Medications ?Medication ?Instructions ?Recorded ?Confirmed dicyclomine 20 mg tablet 20 mg PO ACHS 02/13/24 05/20/24 insulin aspart U-100 100 unit/mL 1 sliding scale dose subcut AC 02/13/24 05/20/24 (3 mL) subcutaneous pen blood-glucose sensor (Dexcom G7 02/14/24 05/20/24 Sensor device) duloxetine 60 mg capsule,delayed 60 mg PO QAM 05/20/24 05/20/24 release Previous Rx's ?Medication ?Instructions ?Recorded insulin glargine 100 unit/mL (3 45 unit (0.45 mL) subcut BID #0 mL 02/16/24 mL) subcutaneous pen (Lantus Solostar U-100 Insulin) promethazine 25 mg tablet 12.5 mg (1/2 x 25 mg) PO Q6H PRN 02/16/24 nausea and vomiting #20 tabs Allergies Allergy/AdvReac Type Severity Reaction Status Date / Time Penicillins Allergy Severe Swelling Verified 02/13/24 18:56 of Lip/Tongue/Throat Opioid HPI Opioid Management Most Recent Opioid Data: Last Pain Scale 9 05/20/24 14:18 05/20/24 Last MAR Pain Assessment 05/20/24 14:18 Last ORT Total Score 1 02/13/24 23:26 02/13/24 Last ORT Risk Category Low Risk 02/13/24 23:26 02/13/24 Ur Phencyclidine Scrn Negative (NEGATIVE) 02/14/24 13:50 02/14/24 Review of Systems ROS Status of ROS 10 or more systems reviewed and unremarkable except as noted in history and below [facility] Medical History (Updated 05/20/24 @ 15:55 by Rain Zambrano DO) Cyclic vomiting syndrome ?R11.15 - Cyclical vomiting syndrome unrelated to migraine (ICD-10) H/O deep venous thrombosis ?Z86.718 - Personal history of other venous thrombosis and embolism (ICD-10) DVT of lower extremity (deep venous thrombosis) ?I82.409 - Acute embolism and thrombosis of unspecified deep veins of unspecified lower extremity (ICD-10) Diabetes ?E11.9 - Type 2 diabetes mellitus without complications (ICD-10) Social History (Updated 02/13/24 @ 23:15 by Pearl Saenz) Within the past year, how often did you have a drink containing alcohol: never Score interpretation: A score less than 4 is consistent with normal alcohol consumption. Smoking status: Current some day smoker Nicotine containing products detail: half pack daily Non-prescribed substance use: denies use Highest level of school completed/degree received: don't know Little interest or pleasure in doing things: not at all Feeling down, depressed, or hopeless: not at all Exam Narrative Exam Narrative: Time Seen: [] Vital Signs: [Per nurse's notes.] General: [Alert] moderate distress Skin: [Warm, dry, no rash.] Head: [Normocephalic, atraumatic.] Neck: [Supple, trachea midline.] Eye: [Pupils are equal, round and reactive to light, extraocular movements are intact, normal conjunctiva.] Ears, nose, mouth and throat: oral mucosa moist. Cardiovascular: Tachycardia, no murmur.] Respiratory: Moderate respiratory distress, diminished breath sounds bilaterally worse on the left. Low lung volumes due to patient stating it hurts to breathe Chest wall: [No tenderness, no deformity.] Gastrointestinal: [Diffuse mild tenderness worse in the left upper quadrant and left lower quadrant. Hypoactive bowel sounds MSK: 5 out of 5 muscle strength x 4 extremities no calf pain or edema Lymphatics: [No lymphadenopathy.] Psychiatric: [Cooperative, appropriate mood & affect.] Neurological: [Alert and oriented to person, place, time, and situation, no focal neurological deficit observed.] Constitutional Vital Signs, click to edit/add: Last Vital Signs Temp 98.6 F 05/20/24 12:00 Pulse 120 H 05/20/24 14:30 Resp 34 H 05/20/24 14:30 BP 119/74 05/20/24 14:30 Pulse Ox 94 L 05/20/24 14:30 O2 Del Method Room Air 05/20/24 12:49 Course Vital Signs Vital signs: Vital Signs Temperature 98.6 F 05/20/24 12:00 Pulse Rate 107 H 05/20/24 12:00 Respiratory Rate 24 H 05/20/24 12:00 Blood Pressure 123/91 05/20/24 12:00 Pulse Oximetry 96 05/20/24 12:00 Oxygen Delivery Method Room Air 05/20/24 12:00 Temperature 98.6 F 05/20/24 12:00 Pulse Rate 120 H 05/20/24 14:30 Respiratory Rate 34 H 05/20/24 14:30 Blood Pressure 119/74 05/20/24 14:30 Pulse Oximetry 94 L 05/20/24 14:30 Oxygen Delivery Method Room Air 05/20/24 12:49 Medical Decision Making MDM Narrative Medical decision making narrative: Patient was found to have a worsening pneumonia on CT scan. Blood cultures and lactate obtained. Levaquin started in ED. IV fluids started in ED. Patient was feeling slightly better after pain medication and breathing treatment. Patient was tachycardic with an elevated lactate and elevated white blood cell count. Patient's blood sugar was also elevated. I spoke to Dr. Medina and he will admit the patient for treatment of the pneumonia respiratory support and control of blood sugar. Patient was comfortable with care plan for being admitted to the hospital. He is allergic to penicillin so IV Levaquin was started and after speaking with Dr. Medina we added IV vancomycin as well. Patient recently had a CT angio chest on the so I did not repeat the CT with dye. Differential Diagnosis Differential Diagnosis: Pneumonia pneumothorax chest pain sepsis hyperglycemia Medical Records Medical records reviewed: Yes I reviewed the patient's medical records Lab Data Lab results reviewed: Yes I reviewed the patient's lab results Labs: Lab Results 05/20/24 05/20/24 Range/Units 12:58 13:04 WBC 19.3 H (4.0-11.0) 10^3/uL RBC 6.17 H (4.70-6.10) 10^6/uL Hgb 16.0 (14.0-18.0) g/dL Hct 49.7 (42.0-54.0) % MCV 80.6 (80.0-94.0) fL MCH 25.9 (25.9-34.0) pg MCHC 32.2 (29.9-35.2) g/dL RDW 13.1 (11.0-15.0) % Plt Count 299 (150-450) 10^3/uL MPV 8.8 L (9.5-13.5) fL Neut % (Auto) 81.3 H (43.0-75.0) % Lymph % (Auto) 10.1 L (20.5-60.0) % [place] % (Auto) 7.0 (1.7-12.0) % Eos % (Auto) 0.7 L (0.9-7.0) % Baso % (Auto) 0.4 (0.2-2.0) % Neut # (Auto) 15.7 H (1.4-6.5) 10^3/uL Lymph # (Auto) 2.0 (1.2-3.8) 10^3/uL [place] # (Auto) 1.4 H (0.3-0.8) 10^3/uL Eos # (Auto) 0.1 (0.0-0.7) 10^3/uL Baso # (Auto) 0.1 (0.0-0.1) 10^3/uL Abs Immat Gran (auto) 0.09 H (0.00-0.03) 10^3/uL Imm/Tot Granulo (auto) 0.5 (0.0-0.5) % Puncture Site Lr ABG pH 7.377 (7.350-7.450) ABG pCO2 35.2 (35.0-45.0) mmHg ABG pO2 59.8 L* (80.0-100.0) mmHg ABG HCO3 20.7 L (22.0-26.0) mmol/L ABG O2 Saturation 92.6 % ABG Base Excess -4.5 L (-2.0-2.0) mmol/L John Test Positive (POSITIVE) Sodium 139 (136-145) mmol/L Potassium 4.1 (3.5-5.1) mmol/L Chloride 100 (98-107) mmol/L Carbon Dioxide 24.4 (21.0-32.0) mmol/L Anion Gap 18.7 BUN 16.0 (7.0-18.0) mg/dL Creatinine 1.29 (0.70-1.30) mg/dL Est GFR ( Amer) >60 (>=60 mL/min/1.73m^2) Est GFR (Non-Af Amer) >60 (>=60 mL/min/1.73m^2) BUN/Creatinine Ratio 12.4 Glucose 369 H (74-106) mg/dL Lactate 5.2 H* (0.4-2.0) mmol/L Calcium 10.1 (8.5-10.1) mg/dL Total Bilirubin 0.4 (0.2-1.0) mg/dL AST 21 (15-37) U/L ALT 30 (16-63) U/L Alkaline Phosphatase 159 H (46-116) U/L Total Protein 8.5 H (6.4-8.2) g/dL Albumin 3.7 (3.4-5.0) g/dL Globulin 4.8 g/dL Albumin/Globulin Ratio 0.8 Imaging Data Chest x-ray: Radiologist's impression: ITS Impressions Chest X-Ray 05/20/24 12:17 IMPRESSION: 1. Elevated left hemidiaphragm with new mild bibasilar infiltrates versus atelectasis. Electronically authenticated by: RACHANA LASSITER Date: 05/20/2024 12:42 Abdomen/Pelvis CT 05/20/24 12:49 IMPRESSION: 1. Large left pleural effusion and basilar infiltrates suggestive of pneumonia. Please see today's CTA chest report for further evaluation. 2. No acute abdominal or pelvic findings to account for patient's symptoms. Electronically authenticated by: RACHANA LASSITER Date: 05/20/2024 13:[address] 05/20/24 12:49 IMPRESSION: 1. Interval development of small posteriorly layering left-sided pleural effusion. 2. Previously identified small cavitary nodule located posteromedially within the posterior basilar segment right lower lobe is obscured by dependent consolidative changes now identified involving the left lower lobe adjacent to the fluid. Small amount of gas in this region is identified on the current study. 3. Moderately diminished lung volumes with multifocal atelectatic changes bilaterally progressed compared to prior study. Small focus of pneumonia involving the inferior lingula is suggested. 4. Mild esophageal dysmotility suspected. 5. Mild asymmetric elevation/eventration left hemidiaphragm again noted. Electronically authenticated by: ADRIAN PATRICK Date: 05/20/2024 14:19 Upper Quadrant Ultrasound 05/20/24 14:50 IMPRESSION: 1. Small amount sludge within the gallbladder likely due to incomplete emptying. 2. No acute or suspicious findings. Electronically authenticated by: RACHANA LASSITER Date: 05/20/2024 15:38 Critical Care Time Critical Care Time Critical Care Time: Yes Total Critical Care Time: 51 Attestation: Sepsis tachycardia mild hypoxia elevated lactate folic disorder Discharge Plan Discharge Chief Complaint: Shortness of Breath/Dyspnea Clinical Impression: Cavitary pneumonia, Hyperglycemia, Sepsis Patient Disposition: Admitted As Inpatient Time of Disposition Decision: 15:54 Condition: Fair Prescriptions / Home Meds: No Action duloxetine 60 mg capsule,delayed release(DR/EC) 60 mg PO QAM dicyclomine 20 mg tablet 20 mg PO ACHS insulin aspart U-100 100 unit/mL (3 mL) insulin pen 1 sliding scale dose SUBCUT AC Eliquis DVT-PE Treat 30D Start 5 mg (74 tabs) tablets,dose pack 5 mg PO Q12H (DME) Dexcom G7 Sensor Device MISCELLANEOUS promethazine 25 mg tablet 12.5 mg PO Q6H PRN (Reason: nausea and vomiting) Qty: 20 0RF insulin glargine [Lantus Solostar U-100 Insulin] 100 unit/mL (3 mL) insulin pen 45 unit SUBCUT BID Qty: 0 0RF Print Language: Kyrgyz Referrals: [facility] [Primary Care Provider] - 1 week
[2024-05-20] MEDS: IPRATROPIUM/ALBUTEROL SULFATE 3 ML AMPUL.NEB IH ×3 (12:32→23:22)
[2024-05-20] MEDS: MORPHINE SULFATE 4 MG/ML VIAL IV ×2 (12:45→14:18)
--- NOTE | 2024-05-20 12:49 | CT_ITS ---
The [address] [address] Patient Name: ROSHAN HASSAN MRN: [id number] date: 1985 Sex: M Assigned Patient Location: ER Current Patient Location: ER Accession/Order Number: [id number] Exam Date: 05/20/2024 13:07 Report Date: 05/20/2024 14:19 At the request of: JACINTO EDDY Procedure: CT chest wo con EXAMINATION: CT chest wo con, 05/20/2024 1:07 PM EST HISTORY: sob COMPARISON: CT angiogram of the chest 05/07/2024 TECHNIQUE: 3 mm sections were obtained from the thoracic inlet through the diaphragm without the use of contrast. Coronal and sagittal reconstructed images were obtained. CT dose reduction technique was used, including Automated Exposure Control. FINDINGS: Mild asymmetric elevation/eventration left hemidiaphragm noted. Upper abdominal contents demonstrate no acute abnormality. Small posteriorly layering left pleural effusion is identified. CORONARY ARTERIES: Heart size normal. Negative for coronary artery calcification. Aorta is nonaneurysmal. Mild fusiform ectasia of the mid esophagus containing fluid. There is no significant wall thickening. There is tapering of the lumen more distally. Subcentimeter focus of gas involving the posterior medial aspect of the left lower lobe on image 58 is in the distribution of the previously noted cavitary nodule. This is obscured by new dependent atelectatic/consolidative changes. Lung volumes are diminished with multifocal atelectatic changes involving middle lobe and lower lobe on the right as well as involving left upper lobe and lingula. Small focus of consolidation involving the inferior lingula with air bronchograms noted, image #60. There are also atelectatic changes involving remaining portions of the superior and basilar segment left lower lobe. No acute osseous abnormality. CT/CT chest wo con IMPRESSION: 1. Interval development of small posteriorly layering left-sided pleural effusion. 2. Previously identified small cavitary nodule located posteromedially within the posterior basilar segment right lower lobe is obscured by dependent consolidative changes now identified involving the left lower lobe adjacent to the fluid. Small amount of gas in this region is identified on the current study. 3. Moderately diminished lung volumes with multifocal atelectatic changes bilaterally progressed compared to prior study. Small focus of pneumonia involving the inferior lingula is suggested. 4. Mild esophageal dysmotility suspected. 5. Mild asymmetric elevation/eventration left hemidiaphragm again noted. Electronically authenticated by: ADRIAN PATRICK Date: 05/20/2024 14:19
--- NOTE | 2024-05-20 12:49 | CT_ITS ---
[address] [address] Patient Name: ROSHAN HASSAN MRN: [id number] date: 1985 Sex: M Assigned Patient Location: ER Current Patient Location: ER Accession/Order Number: [id number] Exam Date: 05/20/2024 13:07 Report Date: 05/20/2024 13:58 At the request of: JACINTO EDDY Procedure: CT abdomen pelvis wo con EXAMINATION: CT abdomen pelvis wo con HISTORY: abd pain ; left upper quadrant pain COMPARISON: No relevant comparison available. TECHNIQUE: Axial, Coronal, and Sagittal images were obtained without and/or with IV contrast as indicated by examination type. Dose reduction techniques were achieved by using automated exposure control and/or adjustment of mA and/or kV according to patient size and/or use of iterative reconstruction technique. FINDINGS: LUNG BASES: Large left pleural effusion and left basilar infiltrates versus atelectasis. LIVER: No enlargement, atrophy, suspicious density, or significant focal lesion. BILIARY: No dilatation or calcification. PANCREAS: No lesion, fluid collection, or abnormal duct dilatation. SPLEEN: No enlargement or focal lesion. ADRENALS: No mass or enlargement. KIDNEYS: No mass, obstruction, or calcification. BOWEL/MESENTERY: No visible mass, obstruction, or bowel wall thickening. Normal appendix. AORTA/VASCULAR: No aneurysm or dissection. RETROPERITONEUM: No mass or adenopathy. LYMPH NODES: No adenopathy. URINARY BLADDER: No visible focal wall thickening, lesion, or calculus. PELVIC ORGANS: No visible mass. Pelvic organs appropriate for patient age. ABDOMINAL WALL: No mass or hernia. BONES: No bony lesion or fracture. OTHER: Negative. CT/CT abdomen pelvis wo con IMPRESSION: 1. Large left pleural effusion and basilar infiltrates suggestive of pneumonia. Please see today's CTA chest report for further evaluation. 2. No acute abdominal or pelvic findings to account for patient's symptoms. Electronically authenticated by: RACHANA LASSITER Date: 05/20/2024 13:58
[2024-05-20 13:06] LABS: ABG PCO2 35.2 mmHg (35.0-45.0); Allen Test POSITIVE (POSITIVE); Base Excess ABG -4.5 mmol/L (-2.0-2.0); HCO3 ABG 20.7 mmol/L (22.0-26.0); Oxygen Saturation ABG 92.6 %; pH ABG 7.377 (7.350-7.450)
[2024-05-20 13:07] LABS: O2 Mode ROOM AIR; Puncture Site LR
[2024-05-20 13:09] LABS: PO2 ABG 59.8 mmHg (80.0-100.0)
[2024-05-20 13:12] LABS: Basophils Absolute Auto 0.1 10^3/uL (0.0-0.1); Basophils Percent Auto 0.4 % (0.2-2.0); Eosinophils Absolute Auto 0.1 10^3/uL (0.0-0.7); Eosinophils Percent Auto 0.7 % (0.9-7.0); Hematocrit 49.7 % (42.0-54.0); Immature Granulocytes Abs Auto 0.09 10^3/uL (0.00-0.03); Immature Granulocytes Pct Auto 0.5 % (0.0-0.5); Lymphocytes Percent Auto 10.1 % (20.5-60.0); Mean Corpuscular HGB Conc 32.2 g/dL (29.9-35.2); Mean Corpuscular Hemoglobin 25.9 pg (25.9-34.0); Mean Corpuscular Volume 80.6 fL (80.0-94.0); Mean Platelet Volume 8.8 fL (9.5-13.5); Monocytes Absolute Auto 1.4 10^3/uL (0.3-0.8); Neutrophils Absolute Auto 15.7 10^3/uL (1.4-6.5); Neutrophils Percent Auto 81.3 % (43.0-75.0); Platelet Count 299 10^3/uL (150-450); Red Blood Count 6.17 10^6/uL (4.70-6.10); Red Cell Distribution Width 13.1 % (11.0-15.0); White Blood Count 19.3 10^3/uL (4.0-11.0)
[2024-05-20 13:32] LABS: Alanine Aminotransferase 30 U/L (16-63); Albumin Globulin Ratio 0.8; Albumin Level 3.7 g/dL (3.4-5.0); Alkaline Phosphatase 159 U/L (46-116); Anion Gap 18.7; Aspartate Amino Transferase 21 U/L (15-37); BUN Creatinine Ratio 12.4; Bilirubin Total 0.4 mg/dL (0.2-1.0); Calcium 10.1 mg/dL (8.5-10.1); Carbon Dioxide 24.4 mmol/L (21.0-32.0); Chloride 100 mmol/L (98-107); Estimated GFR (African America >60 (>=60 mL/min/1.73m^2); Estimated GFR (Non-African Ame >60 (>=60 mL/min/1.73m^2); Globulin 4.8 g/dL; Glucose 369 mg/dL (74-106); Potassium 4.1 mmol/L (3.5-5.1); Sodium 139 mmol/L (136-145); Total Protein 8.5 g/dL (6.4-8.2)
[2024-05-20] MEDS: LEVOFLOXACIN IN DEXTROSE 5 % 500 MG/100 ML PREMIX 100 MG IV (14:21)
--- NOTE | 2024-05-20 14:50 | US_ITS ---
The [address] [address] Patient Name: ROSHAN HASSAN MRN: [id number] date: 1985 Sex: M Assigned Patient Location: ER Current Patient Location: ED.MAIN Accession/Order Number: [id number] Exam Date: 05/20/2024 14:51 Report Date: 05/20/2024 15:38 At the request of: SHAIKH RICCI Procedure: US right upper quadrant EXAMINATION: US right upper quadrant HISTORY: Abnormal Liver imaging. COMPARISON: CT abdomen pelvis 05/20/2024, 05/07/2024 TECHNIQUE: Transabdominal evaluation of the right upper quadrant. FINDINGS: LIVER: Normal size and echotexture. Color Doppler demonstrates patent hepatic veins. PORTAL VEIN: Duplex Doppler demonstrates normal hepatopetal flow pattern with flow velocity averaging 30 cm/s. GALLBLADDER: Small amount of layering sludge. No visible gallstones, wall thickening, or pericholecystic free fluid. Negative sonographic Bruce's sign. BILIARY: No abnormal dilation or stones. Common bile duct diameter is within normal limits. PANCREAS: Limited evaluation. No visible mass, abnormal atrophy, or duct dilation. KIDNEY: No hydronephrosis. No visible mass or stones. Size: 11.1 x 5.4 x 4.5 cm US/US right upper quadrant IMPRESSION: 1. Small amount sludge within the gallbladder likely due to incomplete emptying. 2. No acute or suspicious findings. Electronically authenticated by: RACHANA LASSITER Date: 05/20/2024 15:38
[2024-05-20 15:19] LABS: Lactate/Lactic Acid 5.2 mmol/L (0.4-2.0)
[2024-05-20] MEDS: 0.9 % SODIUM CHLORIDE 1,000 ML 1000 ML IV ×2 (15:35→19:49)
[2024-05-20 16:46] LABS: Lactate/Lactic Acid 0.9 mmol/L (0.4-2.0)
[2024-05-20] MEDS: LACTATED RINGER'S SOLUTION 1,000 ML 125 ML IV (16:53)
[2024-05-20] MEDS: OXYCODONE HCL 5 MG TABLET PO (16:53)
[2024-05-20] MEDS: ENOXAPARIN SODIUM 40 MG/0.4 ML SYRINGE SUBQ (16:54)
[2024-05-20] MEDS: VANCOMYCIN HCL 1,500 MG in 0.9 % SODIUM CHLORIDE 500 ML 250 MG IV (16:54)
[2024-05-20] MEDS: INSULIN ASPART 300 UNIT/3 ML PEN SUBQ ×2 (16:58→21:02)
--- NOTE | 2024-05-20 19:35 | PM.HP ---
HPI H&P: HPI History of Present Illness Chief complaint: POSSIBLE PHNEMONIA Narrative: 39 y o male presented to ED with generalized weakness, fatigue, worsening productive cough for past 3-4 weeks. Patient also reports severe left sided chest wall pain that is severe, pleuritic and sharp in nature and has been going on for the same period of time but now considerably worse. He was seen in ED about 2 weeks ago and was discharged home on Oral Levaquin. He reports finishing his abx. Patient does not have a formal diagnosis of COPD but admits to chronic daily cough and currently smokes one pack per day. Patient has lost about 100 lbs in past one year or so. Opioid HPI Opioid Management Most Recent Pain and Opioid Data: Last Pain Scale 10 05/20/24 19:48 05/20/24 Last Pain Assessment 05/20/24 19:42 Last ORT Total Score 1 05/20/24 16:20 05/20/24 Last ORT Risk Category Low Risk 05/20/24 16:20 05/20/24 Ur Phencyclidine Scrn Negative (NEGATIVE) 02/14/24 13:50 02/14/24 Review of Systems ROS Status of ROS 10 or more systems reviewed and unremarkable except as noted in history and below [facility] Medical History (Updated 05/20/24 @ 19:39 by Shaikh Van MD) Cyclic vomiting syndrome ?R11.15 - Cyclical vomiting syndrome unrelated to migraine (ICD-10) H/O deep venous thrombosis ?Z86.718 - Personal history of other venous thrombosis and embolism (ICD-10) DVT of lower extremity (deep venous thrombosis) ?I82.409 - Acute embolism and thrombosis of unspecified deep veins of unspecified lower extremity (ICD-10) Diabetes ?E11.9 - Type 2 diabetes mellitus without complications (ICD-10) Social History (Updated 05/20/24 @ 19:43 by Shaikh Van MD) Within the past year, how often did you have a drink containing alcohol: never Score interpretation: A score less than 4 is consistent with normal alcohol consumption. Smoking status: Current every day smoker Nicotine containing products detail: half pack daily Non-prescribed substance use: denies use Highest level of school completed/degree received: 10th grade Little interest or pleasure in doing things: not at all Feeling down, depressed, or hopeless: not at all Meds Home Medications and Allergies Home Medications ?Medication ?Instructions ?Recorded ?Confirmed ?Type dicyclomine 20 mg tablet 20 mg PO ACHS 02/13/24 05/20/24 History insulin aspart U-100 100 unit/mL 1 sliding scale dose subcut AC 02/13/24 05/20/24 History (3 mL) subcutaneous pen blood-glucose sensor (Dexcom G7 02/14/24 05/20/24 History Sensor device) insulin glargine 100 unit/mL (3 45 unit (0.45 mL) subcut BID #0 mL 02/16/24 05/20/24 Rx mL) subcutaneous pen (Lantus Solostar U-100 Insulin) promethazine 25 mg tablet 12.5 mg (1/2 x 25 mg) PO Q6H PRN 02/16/24 05/20/24 Rx nausea and vomiting #20 tabs duloxetine 60 mg capsule,delayed 60 mg PO QAM 05/20/24 05/20/24 History release Allergies Allergy/AdvReac Type Severity Reaction Status Date / Time Penicillins Allergy Severe Swelling Verified 02/13/24 18:56 of Lip/Tongue/Throat Exam Constitutional Vital Signs, click to edit/add: Last Vital Signs Temp 98.4 F 05/20/24 16:20 Pulse 111 H 05/20/24 16:22 Resp 22 H 05/20/24 16:20 BP 127/86 05/20/24 16:20 Pulse Ox 91 L 05/20/24 16:22 O2 Del Method Nasal Cannula 05/20/24 16:22 O2 Flow Rate 2 05/20/24 16:22 Documenting provider has reviewed patient's vital signs: yes Common normals: oriented x3 General appearance: cooperative, lethargic and ill appearing [facility] Common normals: normocephalic and head/scalp atraumatic Head and scalp: normocephalic and atraumatic Eye Common normals: conjunctivae normal and no scleral icterus Conjunctiva: conjunctiva(e) normal Chest Other: Severe left chest wall tenderness on left side. Respiratory Common normals: normal respiratory effort and no use of accessory muscles Effort & inspection: able to speak in complete sentences and tachypneic Auscultation: rhonchi and diminished lung sounds Cardio Common normals: S1 normal heart sound and S2 normal heart sound Rate: tachycardic Heart sounds: S1 normal and S2 normal GI Common normals: Normal to inspection, nondistended, normoactive bowel sounds present, soft to palpation, non-tender and no hepatosplenomegaly Palpation: soft and no hepatosplenomegaly Extremity Common normals: no clubbing, cyanosis or edema Neuro Common normals: oriented x3, moves all extremities and no focal motor deficits Psych Common normals: mental status grossly normal, denies hallucinations, denies homicidal ideation and denies suicidal ideation Results Labs Labs: Short CBC 05/20/24 Range/Units 13:04 WBC 19.3 H (4.0-11.0) 10^3/uL Hgb 16.0 (14.0-18.0) g/dL Hct 49.7 (42.0-54.0) % Plt Count 299 (150-450) 10^3/uL BMP 05/20/24 13:04 Sodium 139 Potassium 4.1 Chloride 100 Carbon Dioxide 24.4 BUN 16.0 Creatinine 1.29 Glucose 369 H Calcium 10.1 Liver Function 05/20/24 Range/Units 13:04 Total Bilirubin 0.4 (0.2-1.0) mg/dL AST 21 (15-37) U/L ALT 30 (16-63) U/L Alkaline Phosphatase 159 H (46-116) U/L Albumin 3.7 (3.4-5.0) g/dL ABG ABG results: 05/20/24 12:58 ABG pH 7.377 ABG pCO2 35.2 ABG pO2 59.8 L* ABG HCO3 20.7 L ABG O2 Saturation 92.6 ABG Base Excess -4.5 L Assessment and Plan Assessment and Plan (1) Sepsis: Assessment and Plan: Meets Criteria for Sepsis (HR> 90, RR> 20, WBC 19K) Will order 1 L IVF bolus, already received one L in ED. Likely due to PNA. F/u blood and sputum cx. Qualifiers: Sepsis type: sepsis due to unspecified organism Sepsis acute organ dysfunction status: without acute organ dysfunction Qualified Code(s): A41.9 - Sepsis, unspecified organism (2) Acute respiratory failure with hypoxia: Assessment and Plan: PaO2<60, Pulse ox 87 % on RA Does not use O2 at home. On 2 L , wean off as tolerated. (3) Multifocal pneumonia: Assessment and Plan: Patient has progression of Pneumonia, multifocal with cavitation and associated pleural effusion despite adequate treatment with oral Levaquin. Failed outpatient treatment. Patient is PCN allergic. Will start on IV vancomycin to cover for MRSA, Imipinem to cover Gram negatives and anaerobes. Obtain sputum cx. Pulm consulted to discuss need for thoracentesis. Pneumonia Severity Index Class IV (8-9% risk of mortality) Needs inpatient treatment with broad spectrum abx as patient is hypoxic, septic and has associated pleural effusion now zoie since he failed outpatient abx therapy. (4) Parapneumonic effusion: Assessment and Plan: Pulm consulted to discuss thoracentesis. on broad spectrum abx (5) Lactic acidosis: Assessment and Plan: Lactate of >5, improved with hydration (6) Diabetes: Assessment and Plan: On basal/bolus insulin. Monitor closely. Qualifiers: Diabetes mellitus type: type 2 Diabetes mellitus complication status: without complication Diabetes mellitus [employer] insulin use: with penitentiary use Qualified Code(s): E11.9 - Type 2 diabetes mellitus without complications; Z79.4 - snf (current) use of insulin (7) H/O deep venous thrombosis: Assessment and Plan: Not on AC. Previously on Eliquis. Was diagnosed in January. Plan Admitted as inpatient as patient is hypoxic and septic from pneumonia with associated parapneumonic pleural effusion. He failed outpatient treatment with oral Levaquin. Pneumonia severity Index Class IV - 8-9% risk of mortality if not hospitalized and treatment appropriately. Pulm consulted for possible thoracentesis. Needs close hemodynamic monitoring to ensure he is improving clinically.
[2024-05-20] MEDS: MORPHINE SULFATE 2 MG/ML SYRINGE IV (19:48)
[2024-05-20] MEDS: INSULIN GLARGINE 300 UNIT/3 ML INSULN.PEN 45 UNIT SQ (21:02)
[2024-05-20] MEDS: IMIPENEM/CILASTATIN SODIUM 1,000 MG in 0.9 % SODIUM CHLORIDE 100 ML 100 MG IV (21:03)
[2024-05-20] MEDS: DICYCLOMINE HCL 10 MG CAPSULE 20 MG PO (21:05)
[2024-05-21] VITALS (29 sets, daily range): BP systolic 111–139; BP diastolic 67–79; PULSE 106–116; TEMP 36.9–37.5; O2SAT 86–96
[2024-05-21] MEDS: VANCOMYCIN HCL 1,000 MG in 0.9 % SODIUM CHLORIDE 250 ML 250 MG IV ×2 (02:36→09:27)
[2024-05-21] MEDS: OXYCODONE HCL 5 MG TABLET PO ×3 (02:51→21:39)
[2024-05-21] MEDS: IMIPENEM/CILASTATIN SODIUM 1,000 MG in 0.9 % SODIUM CHLORIDE 100 ML 100 MG IV ×3 (05:11→21:28)
[2024-05-21] MEDS: LACTATED RINGER'S SOLUTION 1,000 ML 125 ML IV ×2 (05:12→14:59)
[2024-05-21] MEDS: IPRATROPIUM/ALBUTEROL SULFATE 3 ML AMPUL.NEB IH ×2 (05:33→11:21)
[2024-05-21 06:24] LABS: Basophils Absolute Auto 0.1 10^3/uL (0.0-0.1); Basophils Percent Auto 0.3 % (0.2-2.0); Eosinophils Absolute Auto 0.1 10^3/uL (0.0-0.7); Eosinophils Percent Auto 0.4 % (0.9-7.0); Hematocrit 42.5 % (42.0-54.0); Hemoglobin 13.7 g/dL (14.0-18.0); Immature Granulocytes Abs Auto 0.05 10^3/uL (0.00-0.03); Immature Granulocytes Pct Auto 0.3 % (0.0-0.5); Lymphocytes Absolute Auto 1.4 10^3/uL (1.2-3.8); Lymphocytes Percent Auto 8.9 % (20.5-60.0); Mean Corpuscular HGB Conc 32.2 g/dL (29.9-35.2); Mean Corpuscular Hemoglobin 25.2 pg (25.9-34.0); Mean Corpuscular Volume 78.3 fL (80.0-94.0); Mean Platelet Volume 9.2 fL (9.5-13.5); Monocytes Absolute Auto 1.4 10^3/uL (0.3-0.8); Monocytes Percent Auto 8.6 % (1.7-12.0); Neutrophils Absolute Auto 12.8 10^3/uL (1.4-6.5); Neutrophils Percent Auto 81.5 % (43.0-75.0); Platelet Count 268 10^3/uL (150-450); Red Blood Count 5.43 10^6/uL (4.70-6.10); Red Cell Distribution Width 12.9 % (11.0-15.0); White Blood Count 15.8 10^3/uL (4.0-11.0)
[2024-05-21 06:33] LABS: Alanine Aminotransferase 25 U/L (16-63); Albumin Globulin Ratio 0.6; Albumin Level 2.5 g/dL (3.4-5.0); Alkaline Phosphatase 101 U/L (46-116); Anion Gap 14.7; Aspartate Amino Transferase 10 U/L (15-37); BUN Creatinine Ratio 10.4; Bilirubin Total 0.4 mg/dL (0.2-1.0); Calcium 8.6 mg/dL (8.5-10.1); Carbon Dioxide 25.2 mmol/L (21.0-32.0); Chloride 100 mmol/L (98-107); Estimated GFR (African America >60 (>=60 mL/min/1.73m^2); Estimated GFR (Non-African Ame >60 (>=60 mL/min/1.73m^2); Globulin 4.2 g/dL; Glucose 229 mg/dL (74-106); Potassium 3.9 mmol/L (3.5-5.1); Sodium 136 mmol/L (136-145); Total Protein 6.7 g/dL (6.4-8.2)
--- NOTE | 2024-05-21 07:50 | US_ITS ---
[address] [address] Patient Name: ROSHAN HASSAN MRN: [id number] date: 1985 Sex: M Assigned Patient Location: [place] Current Patient Location: [place] Accession/Order Number: [id number] Exam Date: 05/21/2024 07:51 Report Date: 05/21/2024 10:05 At the request of: ALECIA STAFFORD Procedure: US chest EXAM: US chest HISTORY: Left pleural effusion COMPARISON: None. TECHNIQUE: Grayscale FINDINGS: Small right basilar pleural effusion is observed. This measures a maximum of 4.1 cm, 4.7 cm below the skin surface. US/US chest IMPRESSION: Small right basilar pleural effusion Electronically authenticated by: SEAN ACOSTA Date: 05/21/2024 10:05
--- NOTE | 2024-05-21 07:53 | PM.PLCN ---
History of Present Illness History of Present Illness Consult date: 05/20/24 Reason for consult: pneumonia and pleural effusion Chief complaint: POSSIBLE PHNEMONIA Narrative: 39yo male presents with worsening dyspnea. History begins earlier this month when the patient came to [facility] ER on 05/07/2024 with left-sided pain, worsening with deep inspiration.? There was evidence for sepsis at that time with WBC 12.1, RR 24, HR 101.? SpO2 was 98% on room air.? CTA done at that time showed evidence of LLL pneumonia with a cavitary lesion 1.5x1.2cm with band-like opacities in lingua and elsewhere in the LLL; no lymphadenopathy was present.? He was started on Levaquin in the ER.? He was offered the choice for admission, but the patient declined as he wanted to be discharged home.? BCx2 were drawn at this time, with eventual results showing no growth. Yesterday, 05/20/2024, the patient returned to [facility] ER complaining of worsening dyspnea and left-sided pain.? He was afebrile in the ER, but his HR was 120 and RR 34 with SpO2 94% on room air.? Repeat chest CT showed marked worsening of the left lung with interval development of a left pleural effusion, obfuscation of the previously seen cavitary lesion, small amount of gas in the left lung, and worsening lingular infiltrates; there is also question of esophageal dysmotility.? Labs revealed WBC further increased to 19.3 and a lactate of 5.2.? His SpO2 began to drop, initially to 87% on room air at 16:20 yesterday.? He was then placed on supplemental O2 @ 2L/min.? It dropped again @ 02:40 this AM to 86%; SpO2 has eventually increased to 5L/min. Upon arrival to the room, the patient appears to be visibly uncomfortable, wincing in pain. He is having tachypnea with shallow breaths. It is painful for him to take a deep breath in. He does not appear diaphoretic. He states he continues to have pain and shortness of breath. He did not feel any improvement with antibiotics after discharge from the ER on 05/07/2024. He states he does not feel any better after coming to the ER yesterday either. Patient has no known history of asthma or COPD. The patient is a long-term smoker, began at age 14 and has smoked roughly 1/2-1ppd for 25 years. After his acute illness, he stopped for 2 days, but then began vaping... The patient has DM1 and has had several admissions for DKA. He was admitted to [facility] December 2022 and was found to have a lower extremity DVT. He was on Eliquis for approximately 3 months which was then stopped. He is not on any chronic anticoagulation outpatient. Discussed with RN who claims that she found a vape pen in his bed. Spoke with RT who stated that the patient has been refusing neb treatments. Review of Systems ROS Status of ROS 10 or more systems reviewed and unremarkable except as noted in history and below [facility] Medical History (Updated 05/21/24 @ 08:00 by Patrice Molina DO) Cyclic vomiting syndrome ?R11.15 - Cyclical vomiting syndrome unrelated to migraine (ICD-10) H/O deep venous thrombosis ?Z86.718 - Personal history of other venous thrombosis and embolism (ICD-10) DVT of lower extremity (deep venous thrombosis) ?I82.409 - Acute embolism and thrombosis of unspecified deep veins of unspecified lower extremity (ICD-10) Diabetes ?E11.9 - Type 2 diabetes mellitus without complications (ICD-10) Social History (Updated 05/20/24 @ 19:43 by Shaikh Van MD) Within the past year, how often did you have a drink containing alcohol: never Score interpretation: A score less than 4 is consistent with normal alcohol consumption. Smoking status: Current every day smoker Nicotine containing products detail: half pack daily Non-prescribed substance use: denies use Highest level of school completed/degree received: 10th grade Little interest or pleasure in doing things: not at all Feeling down, depressed, or hopeless: not at all Meds Home Medications and Allergies Home Medications ?Medication ?Instructions ?Recorded ?Confirmed ?Type dicyclomine 20 mg tablet 20 mg PO ACHS 02/13/24 05/20/24 History insulin aspart U-100 100 unit/mL 1 sliding scale dose subcut AC 02/13/24 05/20/24 History (3 mL) subcutaneous pen blood-glucose sensor (Dexcom G7 02/14/24 05/20/24 History Sensor device) insulin glargine 100 unit/mL (3 45 unit (0.45 mL) subcut BID #0 mL 02/16/24 05/20/24 Rx mL) subcutaneous pen (Lantus Solostar U-100 Insulin) promethazine 25 mg tablet 12.5 mg (1/2 x 25 mg) PO Q6H PRN 02/16/24 05/20/24 Rx nausea and vomiting #20 tabs duloxetine 60 mg capsule,delayed 60 mg PO QAM 05/20/24 05/20/24 History release Allergies Allergy/AdvReac Type Severity Reaction Status Date / Time Penicillins Allergy Severe Swelling Verified 02/13/24 18:56 of Lip/Tongue/Throat Exam Constitutional Vital Signs, click to edit/add: Last Vital Signs Temp 99.5 F 05/21/24 02:40 Pulse 110 H 05/21/24 05:42 Resp 26 H 05/21/24 05:42 BP 120/74 05/21/24 02:40 Pulse Ox 93 L 05/21/24 05:42 O2 Del Method Nasal Cannula 05/21/24 05:42 O2 Flow Rate 5 05/21/24 05:42 Documenting provider has reviewed patient's vital signs: yes Other: Patient does not appear comfortable. He is tachypneic with shallow breaths, appears to be in pain with deep breathing. HENMT Other: There are several dental caries present. Mallampati III. Respiratory Other: Patient is tachypneic with shallow breathing. He winces in pain with deep aspiration. Breath sounds overall are diminished, but absent in the left base. There is dullness to percussion and egophony in the left base, along with decreased tactile fremitus. Cardio Other: Tachycardic with a regular rhythm Neuro Motor exam: no tremor noted and no fasciculations Psych Mood and affect: anxious Results Laboratory Findings ABG, PT/INR, D-dimer: ABG ABG pH 7.377 (7.350-7.450) 05/20/24 12:58 ABG pCO2 35.2 mmHg (35.0-45.0) 05/20/24 12:58 ABG pO2 59.8 mmHg (80.0-100.0) L* 05/20/24 12:58 ABG O2 Saturation 92.6 % 05/20/24 12:58 Abnormal lab findings: Abnormal Labs 01/05/20/24 05/21/24 12:58 13:04 05:51 WBC 19.3 H 15.8 H RBC 6.17 H Hgb 13.7 L MCV 78.3 L MCH 25.2 L MPV 8.8 L 9.2 L Neut % (Auto) 81.3 H 81.5 H Lymph % (Auto) 10.1 L 8.9 L Eos % (Auto) 0.7 L 0.4 L Neut # (Auto) 15.7 H 12.8 H Callahan # (Auto) 1.4 H 1.4 H Abs Immat Gran (auto) 0.09 H 0.05 H ABG pO2 59.8 L* ABG HCO3 20.7 L ABG Base Excess -4.5 L Glucose 369 H 229 H Lactate 5.2 H* AST 10 L Alkaline Phosphatase 159 H Total Protein 8.5 H Albumin 2.5 L Assessment and Plan Assessment and Plan (1) Pleural effusion: Assessment and Plan: 1. Left pleural effusion. New on 05/20/2024 compared to 05/07/2024. Given the 1.5 cm LLL cavitary lesion present on 05/07/2024 and clinical scenario for sepsis, there is a high suspicion that this is a parapneumonic effusion. My concern is this is developing into an empyema or possibly abscess. The patient is visibly uncomfortable. I strongly recommended a thoracentesis, not only to help relieve some shortness of breath and discomfort, but also to obtain cultures and labs. If there is evidence of empyema/abscess, I explained to the patient that he may require a chest tube and possible transfer to a tertiary care center for thoracic surgery. He is not on any anticoagulation. I explained the risks of the procedure including further pain, bleeding, additional infection, and pneumothorax which could necessitate the need for chest tube for that indication. He voiced understanding and verbally consented to the thoracentesis. I am not available to perform the procedure; I am requesting radiology to perform the thoracentesis. Further plan of care depending on the results. 2. Cavitary pneumonia in the LLL. Initially identified on 05/07/2024, treated outpatient with Levaquin, not readily apparent on 05/20/2024 due to development of pleural effusion. There is questionable gas in the area now. Overall presentation is suspicious for Staphylococcus aureus. Blood cultures 05/07/2024 were negative for any growth. Antibiotics were changed to vancomycin and Primaxin. Patient has a allergy to penicillin but he could not tell me what the reaction was; he stated that he I was not raised by my family. My grandmother told me that I had an allergy to penicillin, but I never knew what it was. 3. Acute hypoxic respiratory failure. Secondary to the above. Baseline is room air, he is now requiring 5L/min. There is concern regarding medication use with opioids that could potentially depress his respiratory drive, leading to worsening hypoxia. Will need to monitor his vitals closely. SpO2 goal should be 90% or greater. 4. Severe sepsis. Patient has SIRS criteria along with a lactate of 5.3. Patient appears ill. Continue with supportive care. 5. Diabetes mellitus type 1. Patient has had episodes of DKA in the past, most recently January 2024. [facility] and December 2022 at [facility]. This is acute illness, he is at risk for developing DKA. Monitor FSBS closely. 6. Tobacco abuse. Patient has approximately 21-twlo-hgog history of smoking. With his acute illness, he switched over to vaping. RN claims that she found a vape pen in his bed. Smoking cessation is strongly recommended, and he is to be advised of the vaping policy here at [facility]. 7. History of DVT. This was discovered December 2022 during admission to [facility] for DKA. He is on Eliquis for 3 months. He currently is on no anticoagulation. Appears this was attributed to immobility with his acute illness (provoked?). I do not know if any anticoagulant workup was performed at that time. Continue with DVT prophylaxis during his admission here.
[2024-05-21] MEDS: DICYCLOMINE HCL 10 MG CAPSULE 20 MG PO ×2 (08:40→21:28)
[2024-05-21] MEDS: INSULIN ASPART 300 UNIT/3 ML PEN SUBQ ×4 (08:41→21:28)
[2024-05-21] MEDS: MORPHINE SULFATE 2 MG/ML SYRINGE IV (08:41)
[2024-05-21] MEDS: INSULIN GLARGINE 300 UNIT/3 ML INSULN.PEN 45 UNIT SQ ×2 (08:41→21:29)
--- NOTE | 2024-05-21 10:00 | CM.NOTE ---
Rounds made with Dr. Araujo, pt continues with pain during inspiration. Pt very dyspneic at rest with use of accessory muscles. Dr. Araujo discussed with pt possible thoracentesis and will discuss options with Dr. Molina. Pt continues on oxygen at this time and IV antibiotics. No discharge today.
--- NOTE | 2024-05-21 10:13 | PC.NURSE ---
Radiology called this automobile service writer and states they the radiologist is not comfortable performing thoracentesis. Resident Services Supervisor let Dr Araujo know this and he forwarded this info to Dr Molina
[2024-05-21] MEDS: KETOROLAC TROMETHAMINE 30 MG/ML VIAL IVP ×2 (10:46→17:40)
[2024-05-21] MEDS: LIDOCAINE 5% PATCH 1 PATCH TOPICAL (10:46)
--- NOTE | 2024-05-21 11:03 | XR_ITS ---
[address] [address] Patient Name: ROSHAN HASSAN MRN: [id number] date: 1985 Sex: M Assigned Patient Location: MS Current Patient Location: [place] Accession/Order Number: [id number] Exam Date: 05/21/2024 10:50 Report Date: 05/21/2024 11:13 At the request of: SHAIKH RICCI Procedure: XR chest 2V EXAMINATION: XR chest 2V HISTORY: Pleural effusion COMPARISON: 05/20/2024 TECHNIQUE: PA and lateral FINDINGS: LUNGS: Mild right basilar opacity. Marked interval progression of left lung infiltrate likely combination of parenchymal consolidation and pleural effusion VASCULATURE: No increased pulmonary vasculature. PLEURA: No pneumothorax CARDIAC: No cardiomegaly or cardiac silhouette abnormality. MEDIASTINUM: No visible mass or adenopathy. BONES: No fracture or visible bone lesion. OTHER: Negative. XR/XR chest 2V IMPRESSION: Marked progression of left lung opacities likely combination of parenchymal consolidation and pleural effusion Electronically authenticated by: SEAN ACOSTA Date: 05/21/2024 11:13
--- NOTE | 2024-05-21 11:13 | PM.IMPN1 ---
Progress Note: A&P Assessment and Plan (1) Sepsis: Assessment and Plan: Still tachycardic, tachypneic. Patient appears uncomfortable, dyspneic and not well. BP however is stable. Qualifiers: Sepsis acute organ dysfunction status: without acute organ dysfunction Sepsis type: sepsis due to unspecified organism Qualified Code(s): A41.9 - Sepsis, unspecified organism (2) Acute respiratory failure with hypoxia: Assessment and Plan: Progressively worsening. Now on 6 L O2 via NC. Monitor closely. (3) Multifocal pneumonia: Assessment and Plan: C/w IV vancomycin/imipenem. F/u cultures. (4) Parapneumonic effusion: Assessment and Plan: Seen by Pulm. Recommended thoracentesis by radiology. Radiology feels that pleural effusion is too small to drain. Repeat CXR - if worsening - will need transfer for CT placement as per Pulm (5) Lactic acidosis: Assessment and Plan: Resolved. (6) Diabetes: Assessment and Plan: C/w basal/bolus insulin. 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 Still tachycardic, tachypneic and now has worse hypoxia. C/w current treatment. Added OPEP. Also added lidocaine/toradol for left sided chest wall pain. Repeat cxr ordered. Internal Medicine - PN: Subj Subjective Interval history: Seen and examined. Overnight patient's hypoxia progressively worsened and he is now on 6 L O2. He is complaining of severe/persistent left chest wall pain that is so severe that he feels that he can't take deep inspiration due to pain. Exam Constitutional Vital Signs, click to edit/add: Last Vital Signs Temp 98.9 F 05/21/24 08:35 Pulse 111 H 05/21/24 08:35 Resp 22 H 05/21/24 08:35 BP 121/73 05/21/24 08:35 Pulse Ox 92 L 05/21/24 10:06 O2 Del Method Nasal Cannula 05/21/24 08:35 O2 Flow Rate 6 05/21/24 08:35 Documenting provider has reviewed patient's vital signs: yes Common normals: oriented x3 General appearance: cooperative, lethargic and ill appearing Chest Other: Severe left chest wall tenderness on left side. Respiratory Common normals: normal respiratory effort and no use of accessory muscles Effort & inspection: able to speak in complete sentences and tachypneic Auscultation: rhonchi and diminished lung sounds Cardio Common normals: S1 normal heart sound and S2 normal heart sound Rate: tachycardic Heart sounds: S1 normal and S2 normal Extremity Common normals: no clubbing, cyanosis or edema Neuro Common normals: oriented x3, moves all extremities and no focal motor deficits Psych Common normals: mental status grossly normal, denies hallucinations, denies homicidal ideation and denies suicidal ideation Internal Medicine - PN: Obj Da Labs Labs: Laboratory Results - last 24 hr 05/20/24 05/20/24 05/20/24 12:58 13:04 16:14 WBC 19.3 H RBC 6.17 H Hgb 16.0 Hct 49.7 MCV 80.6 MCH 25.9 MCHC 32.2 RDW 13.1 Plt Count 299 MPV 8.8 L Neut % (Auto) 81.3 H Lymph % (Auto) 10.1 L [place] % (Auto) 7.0 Eos % (Auto) 0.7 L Baso % (Auto) 0.4 Neut # (Auto) 15.7 H Lymph # (Auto) 2.0 [place] # (Auto) 1.4 H Eos # (Auto) 0.1 Baso # (Auto) 0.1 Abs Immat Gran (auto) 0.09 H Imm/Tot Granulo (auto) 0.5 Puncture Site Lr ABG pH 7.377 ABG pCO2 35.2 ABG pO2 59.8 L* ABG HCO3 20.7 L ABG O2 Saturation 92.6 ABG Base Excess -4.5 L John Test Positive Sodium 139 Potassium 4.1 Chloride 100 Carbon Dioxide 24.4 Anion Gap 18.7 BUN 16.0 Creatinine 1.29 Est GFR ( Amer) >60 Est GFR (Non-Af Amer) >60 BUN/Creatinine Ratio 12.4 Glucose 369 H Lactate 5.2 H* 0.9 Calcium 10.1 Total Bilirubin 0.4 AST 21 ALT 30 Alkaline Phosphatase 159 H Total Protein 8.5 H Albumin 3.7 Globulin 4.8 Albumin/Globulin Ratio 0.8 01/23/25 05:51 WBC 15.8 H RBC 5.43 Hgb 13.7 L Hct 42.5 MCV 78.3 L MCH 25.2 L MCHC 32.2 RDW 12.9 Plt Count 268 MPV 9.2 L Neut % (Auto) 81.5 H Lymph % (Auto) 8.9 L [place] % (Auto) 8.6 Eos % (Auto) 0.4 L Baso % (Auto) 0.3 Neut # (Auto) 12.8 H Lymph # (Auto) 1.4 [place] # (Auto) 1.4 H Eos # (Auto) 0.1 Baso # (Auto) 0.1 Abs Immat Gran (auto) 0.05 H Imm/Tot Granulo (auto) 0.3 Puncture Site ABG pH ABG pCO2 ABG pO2 ABG HCO3 ABG O2 Saturation ABG Base Excess John Test Sodium 136 Potassium 3.9 Chloride 100 Carbon Dioxide 25.2 Anion Gap 14.7 BUN 10.0 Creatinine 0.96 Est GFR ( Amer) >60 Est GFR (Non-Af Amer) >60 BUN/Creatinine Ratio 10.4 Glucose 229 H Lactate Calcium 8.6 Total Bilirubin 0.4 AST 10 L ALT 25 Alkaline Phosphatase 101 Total Protein 6.7 Albumin 2.5 L Globulin 4.2 Albumin/Globulin Ratio 0.6
--- NOTE | 2024-05-21 13:01 | CT_ITS ---
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 CT dose reduction technique was used, including Automated Exposure Control. FINDINGS: LOWER NECK: Normal. CHEST: LUNGS / AIRWAYS / PLEURA: Complete atelectasis of the left lower lobe and near complete atelectasis/consolidation of the left upper lobe with air bronchograms. Large, slightly irregular left pleural effusion, increased in size from the prior exam. Streaky right lower lobe atelectasis. Patchy consolidation in the right middle lobe. HEART / VESSELS: No coronary calcium. Small pericardial effusion. MEDIASTINUM / ESOPHAGUS: Minimal rightward shift of the mediastinum due to the large left pleural effusion. LYMPH NODES: Fullness of both kaylene, which could be due to underlying adenopathy, though evaluation is limited without intravenous contrast. CHEST WALL: Mild soft tissue anasarca. UPPER ABDOMEN: Normal. MUSCULOSKELETAL: No significant abnormality. CT/CT chest wo con IMPRESSION: 1. Large slightly irregular left sided pleural effusion, increased in size from the prior exam, with resultant near complete atelectasis of the left lung. Superimposed infectious consolidation of the left upper lobe is suspected given the air bronchograms. Patchy consolidation in the right middle lobe likely also represents an additional site of infectious consolidation. 2. Hilar fullness bilaterally likely represents reactive adenopathy. Attention on follow-up is recommended. Electronically authenticated by: ROSHAN ROLON Date: 05/21/2024 15:15
[2024-05-21 17:02] LABS: Vancomycin Trough 9.3 ug/mL (5.0-20.0)
[2024-05-21] MEDS: ENOXAPARIN SODIUM 40 MG/0.4 ML SYRINGE SUBQ (17:40)
[2024-05-21] MEDS: VANCOMYCIN HCL 1,250 MG in 0.9 % SODIUM CHLORIDE 250 ML 250 MG IV (18:11)
[2024-05-21 19:56] LABS: ABG PCO2 35.4 mmHg (35.0-45.0); pH ABG 7.468 (7.350-7.450)
[2024-05-21 19:57] LABS: Allen Test POSITIVE (POSITIVE); Base Excess ABG 1.9 mmol/L (-2.0-2.0); HCO3 ABG 25.6 mmol/L (22.0-26.0); Liters per Minute 6L; O2 Mode NASAL CANNULA; Oxygen Saturation ABG 93.6 %; Puncture Site RR
[2024-05-21 19:59] LABS: PO2 ABG 59.5 mmHg (80.0-100.0)
--- NOTE | 2024-05-24 13:05 | P.DS_ITS ---
DS: Providers Provider Date of admission: 05/20/24 15:37 Primary care physician: [facility] Admitting clinician: Shaikh Van Attending physician on admission: Shaikh Van Consults: 05/20/24 14:49 Consult to Pulmonology Routine Consulting Provider: Patrice Molina Reason for consultation: Pneumonia Attending physician on discharge: Shaikh Van Discharging clinician: Shaikh Van Anticipated date of discharge: 05/24/24 DS: Diagnosis Discharge Diagnosis (1) Sepsis: Qualifiers: Sepsis acute organ dysfunction status: without acute organ dysfunction Sepsis type: sepsis due to unspecified organism Qualified Code(s): A41.9 - Sepsis, unspecified organism (2) Acute respiratory failure with hypoxia: (3) Multifocal pneumonia: (4) Parapneumonic effusion: (5) Lactic acidosis: (6) Diabetes: Qualifiers: Diabetes mellitus complication status: without complication Diabetes mellitus exterminator helper insulin use: with exterminator helper use Diabetes mellitus type: type 2 Qualified Code(s): E11.9 - Type 2 diabetes mellitus without complications; Z79.4 - care home (current) use of insulin DS: Summary Hospital Course Hospital Course: 39 y o male presented to ED with generalized weakness, fatigue, worsening productive cough for past 3-4 weeks. Patient also reported severe left sided sharp/pleuritic chest wall pain. He was seen in ED about 2 weeks ago and was discharged home on Oral Levaquin. He finished his abx but instead of improve ment, got increasingly SOB and came to ED for further eval. He was found to have worsening Pulm infiltrates, associated parapneumonic effusion and started on IV vancomycin/imipenem. He continued to progressively get worse with increasing O2 requirement and upon day of discharge, needed 6 L O2 via NC. He had repeat CT chest that showed rapid progression of his Pleural effusion, pulm infiltrates. Case D/w Pulm and Radiology. There was suspicion that his pleural effusion is loculated and he will need Chest tube placement. Patient transferred to [facility] for higher level of care. Time Spent with Patient Time attestation: Total time spent providing and/or coordinating discharge services: Exam Constitutional Vital Signs, click to edit/add: Last Vital Signs Temp 98.9 F 05/21/24 21:41 Pulse 109 H 05/21/24 22:12 Resp 27 H 05/21/24 21:41 BP 139/79 05/21/24 21:41 Pulse Ox 94 L 05/21/24 21:41 O2 Del Method Nasal Cannula 05/21/24 21:41 O2 Flow Rate 6 05/21/24 21:41 DS: Data Data Completed and Pending Labs on day of discharge: Preliminary micro results at discharge 05/20/24 13:04 Blood Culture Result 2 - Preliminary Blood NO GROWTH AT 36-48 HOURS. FINAL TO FOLLOW. 05/20/24 12:42 Blood Culture Result 1 - Preliminary Blood NO GROWTH AT 36-48 HOURS. FINAL TO FOLLOW. Discharge Plan Discharge Disposition: [facility] Condition: Fair Discharge Date/Time: 05/21/24 22:35 Discharge Location: [facility] Discharge location: [facility]
== END 2024-05-21 22:35 | disposition short-term general hospital (02) | DRG 720 ==
LOC: ER 15:55 → MS 16:07 → ICU 05-21 19:31
PROVIDERS: Registered Nurse; Admitting Provider Internal Medicine; Emergency Provider Emergency Medicine; Visit Provider Internal Medicine
DX: A41.9 Sepsis, unspecified organism (principal); J96.01 Acute respiratory failure with hypoxia; J18.9 Pneumonia, unspecified organism; J91.8 Pleural effusion in other conditions classified elsewhere; J98.4 Other disorders of lung; E10.9 Type 1 diabetes mellitus without complications; E87.20 Acidosis, unspecified; F17.210 Nicotine dependence, cigarettes, uncomplicated; Z79.4 Long term (current) use of insulin; Z79.899 Other long term (current) drug therapy; Z88.0 Allergy status to penicillin; Z86.718 Personal history of other venous thrombosis and embolism
CPT/HCPCS: 36415; 36600; 71045; 71046; 71250; 74176; 76604; 76705; 80053; 80202; 82150; 82805; 82945; 83605; 83615; 83986; 84157; 84478; 85025; 87040; 87070; 87205; 89051; 94640; 94667; 94668; 94761; 96365; 96375; 96376; 99285; J0743; J1650; J1885; J2270; J3370